=== PATIENT | female | born 1945 | race Caucasian/White ===

== ENCOUNTER 2018-06-05 06:58 | Day surgery (SDC) | payer OTHER ==
--- NOTE | 2018-05-26 11:48 | EKG ---
Test Date: 2018-05-26 Test Time: 11:25:04 Legal Adviser: OCTAVIO MEASUREMENT RESULTS: Intervals: Rate: 62 NJ: 142 QRSD: 72 QT: 398 QTc: 403 [place]: P: 62 NJ: 142 QRS: 46 T: 55 INTERPRETIVE STATEMENTS: Normal sinus rhythm Low voltage QRS Borderline ECG Compared to ECG 03/09/2017 09:48:38 Low QRS voltage now present Prolonged QT interval no longer present Electronically Signed On 05-26-18 11:47:50 CDT by Avtar Cantu
[2018-05-26 11:55] LABS: Absolute Lymphocytes (CBC) 1.8 K/uL (0.7-4.9); Absolute Monocytes 0.5 K/uL (0.1-1.3); Absolute Neutrophil 3.1 K/uL (1.8-8.0); Basophils % 0.7 % (0-1.3); Eosinophils % 1.4 % (0-4.4); Hematocrit 44.1 % (36.0-45.0); Lymphocytes % 32.9 % (15.3-44.8); MCH 30.3 pg (27.0-35.0); MCV 91.2 fL (80-100); MPV 7.6 fL (7.6-11.3); Monocytes % 9.2 % (3.3-12.3); RBC Red Blood Cell Count 4.83 M/uL (3.86-4.86)
[2018-05-26 12:11] LABS: Potassium 4.8 mmol/L (3.5-5.1)
--- OUTSIDE RECORDS SUMMARY | 2018-06-05 07:01 | XMS REPORT | Clinical Summary ---
:1945 Author Organization [facility] Address [address] [place] [address] Care Team Providers Name Role Phone Talon Au MD Primary Care Provider Allergies Not on File Current Medications Not on file Active Problems Not on file Social History Tobacco Use Types Packs/Day Years Used Date Never Assessed Sex Assigned at Date Recorded Not on file Last Filed Vital Signs Not on file Plan of Treatment Health Maintenance Due Date Last Done Comments BREAST CANCER SCREENING 1996 COLON CANCER SCREENING 1996 SHINGRIX VACCINE (#1) 1996 ZOSTER VACCINE 2006 PNEUMOCOCCAL POLYSACCHARIDE VACCINE AGE 65 AND OVER 12/26/2011 PNEUMOCOCCAL-13 12/26/2011 INFLUENZA VACCINE 04/19/2018 Results Not on fileafter 06/04/2017 Insurance Payer Benefit Plan / Group Subscriber ID Type Phone Address AARP AARP SUPPLEMENT xxxxxxxxxxx Commercial MEDICARE MEDICARE PART A AND B xxxxxxxxxx Medicare [place], [place]
[2018-06-05] MEDS ORDERED: PHENYLEPHRINE 10% OPTH 5ML ONE (07:11)
[2018-06-05] MEDS ORDERED: NA CHLORIDE 0.9% 500 ML ONE (07:11)
[2018-06-05] MEDS ORDERED: BUPIVACAINE 0.25% PF 10 ML VIAL ONE (07:12)
[2018-06-05] MEDS ORDERED: LIDOCAINE 2% MPF 5 ML VIAL ONE ×2 (07:12→08:25)
[2018-06-05] MEDS ORDERED: CYCLOPENTOLATE 1% OPTH 2 ML ONE (07:12)
[2018-06-05] MEDS ORDERED: TETRACAINE HCL 0.5% 2ML OPTH ONE (07:13)
[2018-06-05] MEDS ORDERED: CYCLOPENTOLATE 1% OPTH 2 ML OPTH ONE ×2 (07:42→07:47)
[2018-06-05] MEDS ORDERED: PHENYLEPHRINE 10% OPTH 5ML OPTH ONE ×2 (07:42→07:47)
[2018-06-05] MEDS ORDERED: NS 0.9% VIAL 10 ML ONE (08:10)
[2018-06-05] MEDS: BALANCED SALT IRRIG PLAIN 500 ML BTL IRR ONE ×2 (08:22→08:28)
[2018-06-05] MEDS: MOXIFLOXACIN HCL 10 DROPS/ML **OR USE OPTH ONE ×2 (08:23→08:28)
[2018-06-05] MEDS: DUOVISC 1 KIT OPTH ONE ×2 (08:23→08:28)
[2018-06-05] MEDS: EPINEPHRINE/PF 1 MG/ML AMP ONE ×2 (08:23→08:28)
[2018-06-05] MEDS ORDERED: PROPOFOL 200 MG/20 ML VIAL IV ONE (08:25)
--- NOTE | 2018-06-05 09:05 | P.BOP ---
Preoperative diagnosis: Nuclear sclerotic cataract OS Postoperative diagnosis: Same Primary procedure: Phacoemulsification with IOL OS Estimated blood loss: None Anesthesia: Local (Subtenon's infusion with anesthesia for cataract surgery) Complications: None Implants: SN60WF +18.5 Transferred to: Other (Day surgery) Condition: Good
--- NOTE | 2018-06-05 20:34 | OP ---
Date of Procedure: 06/05/2018 Surgeon: Suzan Palma MD Anesthesiologist: 1. Len Gage CRNA. 2. Len Boateng C.R.N.A. 3. Chace Mcdonald MD. Preoperative Diagnosis: Nuclear sclerotic cataract, OS (left eye). Operation Performed: Phacoemulsification with intraocular lens implant, left eye. Anesthesia: Per cataract surgery. Complications: None. Description Of The Procedure: In day surgery, the patient was prepped with Betadine and draped. A c onjunctival incision was made in the inferior nasal quadrant with Miguel scissors. A sub-Tenon blo ck consisting of a 1:1 mixture of 2% Xylocaine and 0.25% bupivacaine was placed through the conjuncti popeye incision with a blunt cannula. A Honan balloon was placed over the eye and the patient was trans ferred to the operating room. In the operating room the patient was prepped and draped in the usual sterile fashion for ophthalmic surgery. A lid speculum was placed in the left eye. Two paracentesis sites were made superiorly and inferiorly in the limbal cornea. Viscoat was placed in the anterior chamber and a crescent blade wa s used to make a corneal groove and tunnel, and a keratome was used to enter the anterior chamber. P rovisc was placed in the anterior chamber and a 360 degree capsulotomy was performed with a cystitome . The lens was hydrodissected with BSS and rotated freely. The lens was removed with a stop and cho p technique. 19.56 phaco CDE was used to remove the lens. Residual cortex was removed with the irri gation and aspiration. Provisc was placed in the capsular bag. A SN60WF +18.5 lens was placed in th e capsular bag without complications. Irrigation and aspiration was used to remove residual viscoela stic. The paracentesis sites were hydrated with BSS. The wound and paracentesis sites were inspecte d and found to be watertight. Vigamox 0.07 cc was placed intracamerally at the end of the procedure. The eye was irrigated with balanced salt solution. The eye was patched with a soft cotton patch an d Dunne metal shield. The patient was returned to day surgery in good condition. Discharge Instructions: Ms. Gutierrez is discharged to home in good condition. She is to follow up cheryl Palma at 3:30 today and then in the morning. ANAYELI/CIPRIANO Voice ID: [id number] Report ID: [id number]
== END 2018-06-05 09:42 | disposition home or self-care (01) ==
LOC: OR 06:58
PROVIDERS: ATTEND Ophthalmology Retina Specialist
PROC: 08RK3JZ Replacement of Left Lens with Synthetic Substitute, Percutaneous Approach (ICD-10-PCS; principal; 2018-06-05 08:30)
DX: H25.12 Age-related nuclear cataract, left eye (principal); I10 Essential (primary) hypertension; G30.9 Alzheimer's disease, unspecified; F02.80 Dementia in other diseases classified elsewhere, unspecified severity, without behavioral disturbance, psychotic disturbance, mood disturbance, and anxiety; Z88.2 Allergy status to sulfonamides; Z82.49 Family history of ischemic heart disease and other diseases of the circulatory system
CPT/HCPCS: 36415; 66984; 80048; 85025; 93005; J0171; V2630

== ENCOUNTER 2018-10-24 14:19 | Observation (INO) | payer OTHER ==
--- OUTSIDE RECORDS SUMMARY | 2018-10-24 14:21 | XMS REPORT | Clinical Summary ---
:1945 Author Organization [facility] Address [address] [place] [address] Care Team Providers Name Role Phone Talon Au MD Primary Care Provider Allergies Not on File Medications Not on file Active Problems Not on file Social History Tobacco Use Types Packs/Day Years Used Date Never Assessed Sex Assigned at Date Recorded Not on file Job Start Date Occupation Industry Not on file Not on file Not on file Travel History Travel Start Travel End No recent travel history available. Last Filed Vital Signs Not on file Plan of Treatment Health Maintenance Due Date Last Done Comments BREAST CANCER SCREENING 1996 COLON CANCER SCREENING 1996 SHINGLES VACCINES (1 of 2) 1996 PNEUMOCOCCAL POLYSACCHARIDE VACCINE AGE 65 AND OVER 12/26/2011 PNEUMOCOCCAL-13 12/26/2011 INFLUENZA VACCINE 04/19/2018 Results Not on fileafter 10/23/2017 Insurance Payer Benefit Plan / Group Subscriber ID Type Phone Address AARP AARP SUPPLEMENT xxxxxxxxxxx Commercial MEDICARE MEDICARE PART A AND B xxxxxxxxxx Medicare [place], [place]
--- NOTE | 2018-10-24 14:40 | RAD REPORT ---
EXAM DESCRIPTION: CT - Ct Stroke Brain Wo Cont - 10/24/2018 2:32 pm CLINICAL HISTORY: TIA COMPARISON: 2017 TECHNIQUE: Computed axial tomography of the head was obtained. IV contrast was not requested. All CT scans are performed using dose optimization technique as appropriate and may include automated exposure control or mA/KV adjustment according to patient size. FINDINGS: An intracranial bleed is not seen . The ventricles are normal in caliber. No extra-axial fluid collection is noted. Fluid within the sinuses/ mastoids is not seen. IMPRESSION: No acute intracranial abnormality is seen. If patient's symptoms persist MRI of the bra in would be recommended. Dr. Arteaga of the emergency room notified 2:25 p.m. October 24, 2018
[2018-10-24 14:48] LABS: Protime INR 1.09
[2018-10-24 14:51] LABS: Absolute Lymphocytes (CBC) 1.2 K/uL (0.7-4.9); Absolute Monocytes 0.4 K/uL (0.1-1.3); Absolute Neutrophil 3.5 K/uL (1.8-8.0); Basophils % 1.2 % (0-1.3); Eosinophils % 4.6 % (0-4.4); Hematocrit 35.1 % (36.0-45.0); Lymphocytes % 21.3 % (15.3-44.8); Monocytes % 7.7 % (3.3-12.3); RBC Red Blood Cell Count 4.03 M/uL (3.86-4.86)
[2018-10-24 14:57] LABS: Magnesium 1.9 mg/dL (1.8-2.4); Potassium 4.3 mmol/L (3.5-5.1)
--- NOTE | 2018-10-24 15:27 | RAD REPORT ---
EXAM DESCRIPTION: RAD - Chest Single View - 10/24/2018 2:47 pm CLINICAL HISTORY: stroke Chest pain. COMPARISON: Chest Single View dated 03/09/2017 FINDINGS: Portable technique limits examination quality. The lungs are grossly clear. The heart is normal in size. No displaced fractures. IMPRESSION: No acute intrathoracic process suspected.
--- NOTE | 2018-10-24 16:00 | EDPHYS ---
Physician Documentation [facility] Name: Gavi Gutierrez Age: 72 yrs Sex: Female : 1945 Arrival Date: 10/24/2018 Time: 14:22 Bed 8 Private MD: ED Physician Patrick Child HPI: 10/24 15:44 This 72 yrs old Female presents to ER via EMS with complaints of S/S of ps1 Possible Stroke. 15:44 The patient's problem is reported as dysphasia, incoherent speech. Onset: The ps1 symptoms/episode began/occurred at 11:30. Duration: The episode is continuous. Context: the episode(s) was witnessed, by the [place] staff. Patient's baseline: Neuro: alert and fully oriented, she does have history of dementia. The patient has experienced similar episodes in the past. Sister states that she recently had an episode that was described as an overall feeling of impending doom but could not really explain it. It lasted for a couple of minutes and then spontaneously remitted. She presented today and had difficulty answering questions and responding in jibberish. She was stroke activated and upon returning from the CT scan was completely returned to baseline. Patient could not answer who the president was but this was an expectation per sister as she has dementia. . Historical: - Allergies: 14:44 Sulfa (Sulfonamide Antibiotics); hb - Home Meds: 14:44 acetaminophen 325 mg Oral tab 2 tabs every 4-6 hours [Active]; aspirin 81 mg Oral chew hb 1 tab once daily [Active]; calcium carbonate 600 mg (1,500 mg) Oral tab 600 mg daily [Active]; diazepam 5 mg Oral tab 1 tab 2 times per day [Active]; donepezil 10 mg Oral tab 1 tab once daily [Active]; escitalopram oxalate 5 mg Oral tab 1 tab once daily [Active]; estradiol 2 mg Oral tab 1 tab once daily [Active]; lisinopril 20 mg Oral tab 1 tab once daily [Active]; memantine 10 mg Oral tab 1 tab 2 times per day [Active]; melatonin 3 mg Oral tab 3 mg daily [Active]; triamterene-hydrochlorothiazid 37.5-25 mg Oral tab 0.5 tab once daily [Active]; Vitamin C 1,000 mg Oral tab 1000 mg daily [Active]; Vitamin D Oral 2000 unit daily [Active]; vitamin E 400 unit Oral cap 400 unit daily [Active]; - PMHx: 14:44 CAD; bladder dysfunction; Hypertension; Dementia; progressive alzheimers; hb - Immunization history:: Adult Immunizations unknown. - Social history:: Smoking status: Patient/guardian denies using tobacco. - Ebola Screening: : No symptoms or risks identified at this time. ROS: 15:44 Constitutional: Negative for fever, chills, and weight loss, Eyes: Negative for injury, ps1 pain, redness, and discharge, Cardiovascular: Negative for chest pain, palpitations, and edema, Respiratory: Negative for shortness of breath, cough, wheezing, and pleuritic chest pain, Abdomen/GI: Negative for abdominal pain, nausea, vomiting, diarrhea, and constipation, MS/Extremity: Negative for injury and deformity, Skin: Negative for injury, rash, and discoloration. 15:44 Neuro: Positive for altered mental status, speech changes. Exam: 15:44 Radiologist reports: negative for hemorrhagic stroke. ps1 15:44 Constitutional: This is a well developed, well nourished patient who is awake, alert, and in no acute distress. Head/Face: Normocephalic, atraumatic. Eyes: Pupils equal round and reactive to light, extra-ocular motions intact. Lids and lashes normal. Conjunctiva and sclera are non-icteric and not injected. Chest/axilla: Normal chest wall appearance and motion. Nontender with no deformity. No lesions are appreciated. Cardiovascular: Regular rate and rhythm. No gallops, murmurs, or rubs. Normal PMI, no JVD. No pulse deficits. Respiratory: Lungs have equal breath sounds bilaterally, clear to auscultation and percussion. No rales, rhonchi or wheezes noted. No increased work of breathing, no retractions or nasal flaring. Abdomen/GI: Soft, non-tender, with normal bowel sounds. No distension or tympany. No guarding or rebound. No evidence of tenderness throughout. Skin: Warm, dry with normal turgor. Normal color with no rashes, no lesions, and no evidence of cellulitis. MS/ Extremity: Pulses equal, no cyanosis. Neurovascular intact. Full, normal range of motion. Neuro: Awake and alert, GCS 15, oriented to person, place, time, and situation. Cranial nerves II-XII grossly intact. Sensory grossly intact. Vital Signs: 14:30 BP 147 / 68; Pulse 75; Resp 16; Temp 98.1; Pulse Ox 100% on R/A; Pain 0/10; hb 14:36 BP 147 / 68; Pulse 74; Resp 18; Temp 98.2; Pulse Ox 98% on R/A; Weight 63.5 kg; ph 15:30 BP 148 / 78; Pulse 77; Resp 16; Pulse Ox 99% on R/A; hb NIH Stroke Scale Scores: 14:19 NIHSS Score: 3 hb 14:37 NIHSS Score: 0 hb MDM: 14:39 Patient medically screened. ps1 15:44 Data reviewed: vital signs, nurses notes. ps1 10/24 14:27 Order name: Magnesium; Complete Time: 15:17 ps1 10/24 14:27 Order name: Basic Metabolic Panel; Complete Time: 15:17 ps1 10/24 14:26 Order name: CT Stroke Brain w/o Contrast; Complete Time: 15:17 bd 10/24 14:27 Order name: CBC with Diff; Complete Time: 15:17 ps1 10/24 14:27 Order name: Protime (+inr); Complete Time: 15:17 ps1 10/24 14:27 Order name: Stroke CXR 1 View; Complete Time: 15:32 ps1 10/24 14:27 Order name: EKG; Complete Time: 14:28 ps1 10/24 14:27 Order name: Accucheck; Complete Time: 14:49 ps1 10/24 14:27 Order name: Cardiac monitoring; Complete Time: 14:49 ps1 10/24 14:27 Order name: EKG - Nurse/Tech; Complete Time: 14:49 ps1 10/24 14:27 Order name: IV Saline Lock; Complete Time: 14:49 ps1 10/24 14:27 Order name: Labs collected and sent; Complete Time: 14:48 ps1 10/24 14:27 Order name: NPO; Complete Time: 14:48 ps1 10/24 14:27 Order name: O2 Per Protocol; Complete Time: 14:48 ps1 10/24 14:27 Order name: O2 Sat Monitoring; Complete Time: 14:48 ps1 10/24 14:27 Order name: Stroke Swallow Screen; Complete Time: 16:03 ps1 10/24 14:27 Order name: Urine Dipstick-Ancillary (obtain specimen); Complete Time: 14:48 ps1 Administered Medications: No medications were administered Point of Care Testing: Blood Glucose: 14:30 Blood Glucose: 170 mg/dL; ph Ranges: Critical Glucose Levels:Adult <50 mg/dl or >400 mg/dl <40 mg/dl or >180 mg/dl Disposition: 10/24/18 15:59 Hospitalization ordered by Dana Morrissey for Inpatient Admission. Preliminary diagnosis is Transient cerebral ischemic attack, unspecified. - Bed requested for Telemetry/MedSurg (Inpatient). - Status is Inpatient Admission. ph - Condition is Stable. - Problem is new. - Symptoms are resolved. UTI on Admission? No NIH Stroke Scale - NIH Stroke Score Date: 10/24/2018 Time: 14:19 Total Score = 3 1a. Level of Consciousness (LOC) - 0(Alert) 1b. Level of Consciousness (LOC) (Year \T\ Age) - 2(Neither) 1c. LOC Commands (Open \T\ Closes Eyes/Clinical Exercise Specialist) - 0(Both) 2. Best Gaze (Lateral Gaze Paresis) - 0(Normal) 3. Visual Field Loss - 0(No visual loss) 4. Facial Palsy - 0(Normal) 5a. Left Arm: Motor (10-second hold) - 0(No drift) 5b. Right Arm: Motor (10-second hold) - 0(No drift) 6a. Left Leg: Motor (5-second hold - always test supine) - 0(No drift) 6b. Right Leg: Motor (5-second hold - always test supine) - 0(No drift) 7. Limb Ataxia (finger/nose \T\ heel/coffey - test with eyes open) - 0(Absent) 8. Sensory Loss (pinprick arms/legs/face) - 0(Normal) 9. Best Language: Aphasia (description/naming/reading) - 1(Mild to moderate aphasia) 10. Dysarthria (speech clarity - read or repeat words) - 0(Normal) 11. Extinction and Inattention (visual/tactile/auditory/spatial/personal) - 0(No abnormality) Initials: hb NIH Stroke Scale - NIH Stroke Score Date: 10/24/2018 Time: 14:37 Total Score = 0 1a. Level of Consciousness (LOC) - 0(Alert) 1b. Level of Consciousness (LOC) (Year \T\ Age) - 0(Both) 1c. LOC Commands (Open \T\ Closes Eyes/Clinical Exercise Specialist) - 0(Both) 2. Best Gaze (Lateral Gaze Paresis) - 0(Normal) 3. Visual Field Loss - 0(No visual loss) 4. Facial Palsy - 0(Normal) 5a. Left Arm: Motor (10-second hold) - 0(No drift) 5b. Right Arm: Motor (10-second hold) - 0(No drift) 6a. Left Leg: Motor (5-second hold - always test supine) - 0(No drift) 6b. Right Leg: Motor (5-second hold - always test supine) - 0(No drift) 7. Limb Ataxia (finger/nose \T\ heel/coffey - test with eyes open) - 0(Absent) 8. Sensory Loss (pinprick arms/legs/face) - 0(Normal) 9. Best Language: Aphasia (description/naming/reading) - 0(No aphasia) 10. Dysarthria (speech clarity - read or repeat words) - 0(Normal) 11. Extinction and Inattention (visual/tactile/auditory/spatial/personal) - 0(No abnormality) Initials: Signatures: Dispatcher [employer] [facility] Rosy Ruiz RN RN Kristin Danielle RN RN Araceli Jaquez RN RN Patrick Child MD MD ps1 Corrections: (The following items were deleted from the chart) 14:32 14:28 CT-STROKE BRAIN W/O CONTRAST+CT.RAD.BRZ ordered. [facility] 16:37 15:59 Hospitalization Ordered by Dana Morrissey MD for Inpatient Admission. dw Preliminary diagnosis is Transient cerebral ischemic attack, unspecified. Bed requested for Telemetry/MedSurg (Inpatient). Status is Inpatient Admission. Condition is Stable. Problem is new. Symptoms are resolved. UTI on Admission? No. ps1 17:10 16:37 10/24/2018 15:59 Hospitalization Ordered by Dana Morrissey MD for Inpatient ph Admission. Preliminary diagnosis is Transient cerebral ischemic attack, unspecified. Bed requested for Telemetry/MedSurg (Inpatient). Status is Inpatient Admission. Condition is Stable. Problem is new. Symptoms are resolved. UTI on Admission? No. dw
--- NOTE | 2018-10-24 16:00 | ER ---
Nurse's Notes [facility] Name: Gavi Gutierrez Age: 72 yrs Sex: Female : 1945 Arrival Date: 10/24/2018 Time: 14:22 Bed 8 Private MD: Diagnosis: Transient cerebral ischemic attack, unspecified Presentation: 10/24 14:20 Presenting complaint: EMS states: Initially called out for chest pain and SOB, on scene hb pt was confused, unable to to answer questions appropriately. Vitals WNL. 14:20 Transition of care: patient was received from another setting of care (long-term care facility), [facility]. Onset of symptoms was October 24, 2018. Risk Assessment: Do you want to hurt yourself or someone else? Patient reports no desire to harm self or others. Care prior to arrival: None. 14:20 Method Of Arrival: EMS: [facility] 14:20 Acuity: BROWN 2 hb 14:36 Initial Sepsis Screen: Does the patient meet any 2 criteria? No. Patient's initial ph sepsis screen is negative. Does the patient have a suspected source of infection? No. Patient's initial sepsis screen is negative. Historical: - Allergies: 14:44 Sulfa (Sulfonamide Antibiotics); hb - Home Meds: 14:44 acetaminophen 325 mg Oral tab 2 tabs every 4-6 hours [Active]; aspirin 81 mg Oral chew hb 1 tab once daily [Active]; calcium carbonate 600 mg (1,500 mg) Oral tab 600 mg daily [Active]; diazepam 5 mg Oral tab 1 tab 2 times per day [Active]; donepezil 10 mg Oral tab 1 tab once daily [Active]; escitalopram oxalate 5 mg Oral tab 1 tab once daily [Active]; estradiol 2 mg Oral tab 1 tab once daily [Active]; lisinopril 20 mg Oral tab 1 tab once daily [Active]; memantine 10 mg Oral tab 1 tab 2 times per day [Active]; melatonin 3 mg Oral tab 3 mg daily [Active]; triamterene-hydrochlorothiazid 37.5-25 mg Oral tab 0.5 tab once daily [Active]; Vitamin C 1,000 mg Oral tab 1000 mg daily [Active]; Vitamin D Oral 2000 unit daily [Active]; vitamin E 400 unit Oral cap 400 unit daily [Active]; - PMHx: 14:44 CAD; bladder dysfunction; Hypertension; Dementia; progressive alzheimers; hb - Immunization history:: Adult Immunizations unknown. - Social history:: Smoking status: Patient/guardian denies using tobacco. - Ebola Screening: : No symptoms or risks identified at this time. Screenin:35 Abuse screen: Denies threats or abuse. Denies injuries from another. Nutritional hb screening: No deficits noted. Tuberculosis screening: No symptoms or risk factors identified. Fall Risk Total Rao Fall Scale indicates Low Risk Score (25-44 pts). Fall prevention measures have been instituted. Side Rails Up X 2 Frequent Obs/Assesments occuring Family Present and informed to notify staff if they need to leave bedside As available Patient and Family Educated on Fall Prevention Program and strategies. 15:00 Patient has been NPO before screening. The patient is alert, able to follow commands. hb The patient does not exhibit slurred or garbled speech The patient is not exhibiting difficulty speaking. The patient does not exhibit difficulty understanding words. The patient is able to swallow own secretions with no drooling or need for suction. Patient tolerated one teaspoon of water. No drooling, immediate coughing, gurgling, or clearing of the throat was noted. The patient tolerated 90mL of water. No drooling, immediate coughing, gurgling, or clearing of the throat was noted. The patient passed the bedside swallow screening. Oral medications may be given as ordered. Contact Physician for further diet orders. Assessment: 14:19 Reassessment: Pt to CT from ambulance bay. hb 14:19 General: Appears in no apparent distress. Behavior is cooperative, quiet. Neuro: Level ph of Consciousness is awake, alert, obeys commands, Oriented to person, Advertising Analyst are equal bilaterally Moves all extremities. Speech with expressive aphasia noted, Facial symmetry appears normal, Pupils are PERRLA. 14:25 Reassessment: Pt returned from CT, lab at bedside for blood draw. hb 14:28 Reassessment: BGL 148. Dr. Child at bedside. hb 14:38 General: Appears in no apparent distress. comfortable, well groomed, Behavior is calm, ph cooperative, appropriate for age, Denies fever, feeling ill. Pain: Denies pain. Neuro: Level of Consciousness is awake, alert, obeys commands, Oriented to person, place, Advertising Analyst are equal bilaterally Moves all extremities. Full function Gait is steady, Speech is normal, Facial symmetry appears normal, Facial symmetry: tongue is midline, Pupils are PERRLA, Intact Denies weakness blurred vision headache. Cardiovascular: Capillary refill < 3 seconds in bilateral fingers Patient's skin is warm and dry. Respiratory: Airway is patent Respiratory effort is even, unlabored, Respiratory pattern is regular, symmetrical. GI: No signs and/or symptoms were reported involving the gastrointestinal system. Patient currently denies abdominal pain, nausea. Derm: Skin is intact, is healthy with good turgor, Skin is pink, warm \T\ dry. Musculoskeletal: Circulation, motion, and sensation intact. Range of motion: intact in all extremities. 15:30 Reassessment: Patient appears in no apparent distress at this time. No changes from hb previously documented assessment. Patient and/or family updated on plan of care and expected duration. Pain level reassessed. Patient is alert, oriented x 3, equal unlabored respirations, skin warm/dry/pink. 16:30 Reassessment: Patient appears in no apparent distress at this time. Patient and/or ph family updated on plan of care and expected duration. Pain level reassessed. Patient is alert, oriented x 3, equal unlabored respirations, skin warm/dry/pink. Pt denies pain at this time, family at bedside, VSS, awaiting room assignment Patient denies pain at this time. 17:08 Reassessment: Patient appears in no apparent distress at this time. Patient and/or ph family updated on plan of care and expected duration. Pain level reassessed. Patient is alert, oriented x 3, equal unlabored respirations, skin warm/dry/pink. Report called to 4th floor, pt taken to inpatient room via wheelchair. Vital Signs: 14:30 BP 147 / 68; Pulse 75; Resp 16; Temp 98.1; Pulse Ox 100% on R/A; Pain 0/10; hb 14:36 BP 147 / 68; Pulse 74; Resp 18; Temp 98.2; Pulse Ox 98% on R/A; Weight 63.5 kg; ph 15:30 BP 148 / 78; Pulse 77; Resp 16; Pulse Ox 99% on R/A; hb NIH Stroke Scale Scores: 14:19 NIHSS Score: 3 hb 14:37 NIHSS Score: 0 hb ED Course: 14:22 Patient arrived in ED. ph 14:26 Patrick Child MD is Attending Physician. ps1 14:32 CT Stroke Brain w/o Contrast In Process Unspecified. EDMS 14:34 Kristin Danielle, VINNIE is Primary Nurse. ph 14:35 Triage completed. hb 14:45 Stroke CXR 1 View In Process Unspecified. EDMS 14:45 X-ray completed. Portable x-ray completed in exam room. Patient tolerated procedure ag1 well. 14:47 Arm band placed on. ph 14:47 Patient has correct armband on for positive identification. Placed in gown. Bed in low ph position. Call light in reach. Side rails up X2. court recording monitor on. Pulse ox on. NIBP on. Warm blanket given. 15:00 Maintain EMS IV. Dressing intact. Good blood return noted. Site clean \T\ dry. Gauge \T\ ph site: 20 RAC. 15:03 EKG done, by photonics engineering technologist. reviewed by Patrick Child MD. at1 15:59 Dana Morrissey MD is Hospitalizing Provider. ps1 16:46 No provider procedures requiring assistance completed. ph 17:10 Patient admitted, IV remains in place. ph Administered Medications: No medications were administered Point of Care Testing: Blood Glucose: 14:30 Blood Glucose: 170 mg/dL; ph Ranges: Outcome: 15:59 Decision to Hospitalize by Provider. ps1 17:09 Admitted to Tele accompanied by tech, family with patient, via wheelchair, room 412, ph with chart. 17:09 Condition: stable 17:09 Instructed on the need for admit. 17:10 Patient left the ED. NIH Stroke Scale - NIH Stroke Score Date: 10/24/2018 Time: 14:19 Total Score = 3 1a. Level of Consciousness (LOC) - 0(Alert) 1b. Level of Consciousness (LOC) (Year \T\ Age) - 2(Neither) 1c. LOC Commands (Open \T\ Closes Eyes/Tank Operator) - 0(Both) 2. Best Gaze (Lateral Gaze Paresis) - 0(Normal) 3. Visual Field Loss - 0(No visual loss) 4. Facial Palsy - 0(Normal) 5a. Left Arm: Motor (10-second hold) - 0(No drift) 5b. Right Arm: Motor (10-second hold) - 0(No drift) 6a. Left Leg: Motor (5-second hold - always test supine) - 0(No drift) 6b. Right Leg: Motor (5-second hold - always test supine) - 0(No drift) 7. Limb Ataxia (finger/nose \T\ heel/coffey - test with eyes open) - 0(Absent) 8. Sensory Loss (pinprick arms/legs/face) - 0(Normal) 9. Best Language: Aphasia (description/naming/reading) - 1(Mild to moderate aphasia) 10. Dysarthria (speech clarity - read or repeat words) - 0(Normal) 11. Extinction and Inattention (visual/tactile/auditory/spatial/personal) - 0(No abnormality) Initials: NIH Stroke Scale - NIH Stroke Score Date: 10/24/2018 Time: 14:37 Total Score = 0 1a. Level of Consciousness (LOC) - 0(Alert) 1b. Level of Consciousness (LOC) (Year \T\ Age) - 0(Both) 1c. LOC Commands (Open \T\ Closes Eyes/Tank Operator) - 0(Both) 2. Best Gaze (Lateral Gaze Paresis) - 0(Normal) 3. Visual Field Loss - 0(No visual loss) 4. Facial Palsy - 0(Normal) 5a. Left Arm: Motor (10-second hold) - 0(No drift) 5b. Right Arm: Motor (10-second hold) - 0(No drift) 6a. Left Leg: Motor (5-second hold - always test supine) - 0(No drift) 6b. Right Leg: Motor (5-second hold - always test supine) - 0(No drift) 7. Limb Ataxia (finger/nose \T\ heel/coffey - test with eyes open) - 0(Absent) 8. Sensory Loss (pinprick arms/legs/face) - 0(Normal) 9. Best Language: Aphasia (description/naming/reading) - 0(No aphasia) 10. Dysarthria (speech clarity - read or repeat words) - 0(Normal) 11. Extinction and Inattention (visual/tactile/auditory/spatial/personal) - 0(No abnormality) Initials: Signatures: Dispatcher [employer] EDMS Valeria Cristina, cork insulation installer EKG Tat1 Kristin Danielle RN RN Denia Thomas ag1 Jaquez, Araceli, RN Patrick Hickman MD MD ps1 Corrections: (The following items were deleted from the chart) 14:31 14:26 Reassessment: Pt returned from CT, lab at bedside for blood draw hb hb
[2018-10-24] MEDS ORDERED: ONDANSETRON 4 MG/2 ML VIAL IV PRN (17:19)
[2018-10-24] MEDS ORDERED: ACETAMINOPHEN 500 MG TAB PO PRN (17:19)
[2018-10-24] MEDS: ENOXAPARIN 40 MG/0.4 ML SQ SCH (17:38)
[2018-10-24] MEDS: NA CHLORIDE 0.9% 1,000 ML IV SCH (17:38)
--- NOTE | 2018-10-24 18:14 | P.PN ---
Date of Service: 10/24/18 I was called by ER Dr. Child to admit patient from assisted living facility. After evaluating patient, family informed me that she recently established care with Dr. Biggs. Spoke with Dr. Biggs and he will be taking over service of patient. Orders for admission placed prior to knowledge of PCP.
--- NOTE | 2018-10-24 19:45 | RAD REPORT ---
EXAM DESCRIPTION: US - CP - 10/24/2018 7:21 pm CLINICAL HISTORY: TIA COMPARISON: No comparisons TECHNIQUE: Real-time sonographic evaluation of both carotid systems was performed. Doppler interroga tion was performed with waveform tracing bilaterally. FINDINGS: Normal high resistance waveforms are noted in both external carotid arteries. The common c arotid arteries and internal carotid arteries show normal low resistance waveforms. Mild hard plaquing is seen in both carotid bulbs and proximal internal carotid arteries. Peak systoli c and end diastolic velocity values and the ICA/CCA ratios are in the non-hemodynamically significant range. Antegrade flow seen in both vertebral arteries. IMPRESSION: Mild hard plaquing is seen in both carotid bulbs proximal internal carotid arteries. No evidence of a hemodynamically significant stenosis.
[2018-10-24] MEDS ORDERED: ATORVASTATIN 40 MG TAB PO SCH (21:00)
[2018-10-24] MEDS ORDERED: levETIRAcetam 500 MG in NA CHLORIDE 0.9% 100 ML IV SCH (21:00)
[2018-10-24 21:21] LABS: Urine Appearance CLEAR; Urine Bilirubin NEGATIVE (NEG); Urine Blood NEGATIVE (NEG); Urine Color YELLOW; Urine Glucose NEGATIVE (NEG); Urine Protein NEGATIVE (NEG); Urine Specific Gravity <=1.005 (1.005-1.030); Urine Urobilinogen 0.2 mg/dL (0.2-1.0); Urine pH 7.5 (5.0-7.0)
--- NOTE | 2018-10-24 21:23 | P.HP ---
Certification for Inpatient Patient admitted to: Observation With expected LOS: <2 Midnights Practitioner: I am a practitioner with admitting privileges, knowledge of patient current condition, hospital course, and medical plan of care. Services: Services provided to patient in accordance with Admission requirements found in Title 42 Section 412.3 of the Code of Federal Regulations Patient History Date of Service: 10/24/18 Reason for admission: ALTERED SPEECH AND IMBALANCE History of Present Illness: MS. BOWIE IS A PATIENT WITH SIGNIFICANT ALZHEIMER'S DISEASE WHO AT [facility] HAD AN EPISODE OF WEAKNESS AND JIBBERISH SPEECH FOR ABOUT TWO HOURS. SHE IS BACK TO HER BASELINE NOW. SISTER GAVE THE HISTORY. Allergies Sulfa (Sulfonamide Antibiotics) Allergy (Unknown, Verified 05/26/18 11:14) Hives Home Medications: Ascorbic Acid [Vitamin C] 1 tab PO DAILY 10/24/18 Aspirin [Aspirin EC 81 MG] 81 mg PO DAILY 10/24/18 Bupropion HCl [Zyban] 150 mg PO BID 10/24/18 Calcium Carb & Citrate/Vit D3 [Citracal + D ER Tablet] 2 each PO BID 10/24/18 Carvedilol 6.25 mg PO BID 10/24/18 D-Methorphan Hb/Prometh HCl [Promethazine-Dm Syrup] 5 ml PO QID PRN 10/24/18 Diazepam [Valium] 1 tab PO BID PRN 10/24/18 Donepezil HCl 1 tab PO DAILY 10/24/18 Latanoprost/Pf [Latanoprost 0.005% Eye Drop] 1 drop LEFT EYE BEDTIME 10/24/18 Lisinopril [Prinivil*] 1 tab PO DAILY 10/24/18 Melatonin [Melatonin*] 3 mg PO BEDTIME 10/24/18 Phenylephrine HCl/Acetaminophn [Mapap Sinus Caplet] 2 tab PO Q4H PRN 10/24/18 Ubidecarenone [Coenzyme Q-10] 100 mg PO DAILY 10/24/18 Vit C/E/Zn/Coppr/Lutein/Zeaxan [Preservision Areds 2 Softgel] 1 cap PO BID 10/24 Vitamin E 1 cap PO DAILY 10/24/18 - Past Medical/Surgical History Has patient received pneumonia vaccine in the past: No Diabetic: No -: dementia -: CAD -: HTN -: Bladder dyfunction -: hysterectomy -: cholecystectomy - Social History Smoking Status: Never smoker Alcohol use: No CD- Drugs: No Caffeine use: Yes Place of Residence: [facility] Review of Systems 10-point ROS is otherwise unremarkable Neurological: Confusion, As per HPI Physical Examination - Vital Signs Temperature: 98.6 F Blood Pressure: 151/76 Pulse: 70 Respirations: 20 Pulse Ox (%): 97 - Physical Exam General: In no apparent distress, Demented, Confused HEENT: Atraumatic, PERRLA, Mucous membr. moist/pink, EOMI, Sclerae nonicteric Neck: Supple, 2+ carotid pulse no bruit, No LAD, Without JVD or thyroid abnormality Respiratory: Clear to auscultation bilaterally, Normal air movement Cardiovascular: Regular rate/rhythm, Normal S1 S2 Gastrointestinal: Normal bowel sounds, No tenderness Musculoskeletal: No tenderness Integumentary: No rashes Neurological: Normal gait, Normal speech, Normal strength at 5/5 x4 extr, Normal tone, Normal affect Lymphatics: No axilla or inguinal lymphadenopathy - Studies Laboratory Data (last 24 hrs) 10/24/18 14:25: PT 12.9 H, INR 1.09 10/24/18 14:25: WBC 5.4, Hgb 11.5 L, Hct 35.1 L, Plt Count 349 10/24/18 14:25: Sodium 140, Potassium 4.3, BUN 9, Creatinine 1.25, Glucose 139 H , Magnesium 1.9 Assessment and Plan - Problems (Diagnosis) (1) Aphasia Current Visit: Yes Status: Acute Plan: THIS WAS FOR TWO HOURS AND RESOLVED. TIA OR ATYPICAL SEIZURE CAN DO THIS. I SUSPECT NO INFECTION. MRI AND EEG IN AM. START KEPPRA THAT WORKS WELL IN THIS SITUATION. (2) Alzheimer disease Current Visit: Yes Status: Chronic Plan: ON MEDS ALREADY. GRADUAL WORSENING. SHE SEES A PA IN [place] FOR IT. Qualifiers: Alzheimer's disease onset: late-onset - Advance Directives Does patient have a Living Will: No Does patient have a Durable POA for Healthcare: Yes
[2018-10-24 21:29] LABS: Urine Bacteria NONE SEEN /HPF (<20); Urine Culture Reflex Order NOT NEEDED; Urine RBC <5 /HPF (NONE SEEN)
[2018-10-25 04:16] LABS: Absolute Lymphocytes (CBC) 2.2 K/uL (0.7-4.9); Absolute Monocytes 0.6 K/uL (0.1-1.3); Absolute Neutrophil 2.9 K/uL (1.8-8.0); Basophils % 1.2 % (0-1.3); Eosinophils % 4.3 % (0-4.4); Hematocrit 32.7 % (36.0-45.0); Lymphocytes % 36.9 % (15.3-44.8); RBC Red Blood Cell Count 3.76 M/uL (3.86-4.86)
[2018-10-25 04:40] LABS: Albumin 3.1 g/dL (3.4-5.0); Bilirubin Total 0.2 mg/dL (0.2-1.0); Potassium 3.6 mmol/L (3.5-5.1); Protein, Total 5.8 g/dL (6.4-8.2); Thyroid Stimulating Hormone 0.719 uIU/mL (0.360-3.740)
[2018-10-25] MEDS: NA CHLORIDE 0.9% 1,000 ML IV SCH ×2 (06:39→14:32)
--- NOTE | 2018-10-25 07:00 | EKG ---
Test Date: 2018-09-23 Test Time: 14:35:22 Sharepoint Web Developer: ADRIAN MEASUREMENT RESULTS: Intervals: Rate: 76 MD: 126 QRSD: 66 QT: 378 QTc: 425 [place]: P: 27 MD: 126 QRS: 35 T: 43 INTERPRETIVE STATEMENTS: Normal sinus rhythm Normal ECG Compared to ECG 05/26/2018 11:25:04 No significant changes Electronically Signed On 10-25-18 06:53:42 CUSTOMER CARE VOICE CONSULTANT by Claudio Patrick
[2018-10-25] MEDS: ENOXAPARIN 40 MG/0.4 ML SQ SCH (09:00)
[2018-10-25] MEDS ORDERED: ASPIRIN EC 81 MG TAB PO SCH (09:00)
[2018-10-25] MEDS ORDERED: levETIRAcetam 500 MG TAB PO SCH (09:00)
[2018-10-25] MEDS ORDERED: CLOPIDOGREL 75 MG TABLET PO SCH (09:00)
[2018-10-25] MEDS ORDERED: LORazepam 2 MG/ML VIAL IV ONE (09:11)
--- NOTE | 2018-10-25 15:06 | RAD REPORT ---
EXAM DESCRIPTION: MRI - Brain Wo Cont - 10/25/2018 2:49 pm CLINICAL HISTORY: altered ms Headache, drowsiness COMPARISON: Ct Stroke Brain Wo Cont dated 10/24/2018 TECHNIQUE: Multi-sequence, multiplanar MR imaging of the brain was performed without contrast. FINDINGS: No intracranial hemorrhage, hydrocephalus or extra-axial fluid collections. No edema or sh ift of midline structures. No findings to suspect brain mass. DWI is negative for acute CVA. Midline structures are normally formed. Trace mucosal thickening is seen in both maxillary antra. A small amount fluid is seen in the inferio r left mastoid air cells. IMPRESSION: Negative for acute CVA or other acute intracranial abnormality.
--- NOTE | 2018-10-25 17:41 | P.DS ---
Admission Date: 10/24/18 Discharge Date: 10/25/18 Disposition: ROUTINE DISCHARGE Discharge Condition: FAIR Reason for Admission: ALTERED SPEECH AND IMBALANCE - Problems (1) Aphasia Onset Date: 10/25/18 Status: Acute (2) Alzheimer disease Onset Date: 10/25/18 Status: Chronic Qualifiers: Alzheimer's disease onset: late-onset Brief History of Present Illness: MS. BOWIE IS A PATIENT WITH SIGNIFICANT ALZHEIMER'S DISEASE WHO AT [facility] HAD AN EPISODE OF WEAKNESS AND JIBBERISH SPEECH FOR ABOUT TWO HOURS. SHE IS BACK TO HER BASELINE NOW. SISTER GAVE THE HISTORY. MRI IS NEGATIVE SHE IS STABLE TO GO HOME ON KEPPRA BID. I SENT RX TO [facility]. Vital Signs/Physical Exam: Temp Pulse Resp BP Pulse Ox 98.0 F 60 18 120/60 98 10/25/18 12:00 10/25/18 12:00 10/25/18 12:00 10/25/18 12:00 10/25/18 12:00 Laboratory Data at Discharge: WBC 6.0 K/uL (4.3-10.9) 10/25/18 03:44 Hgb 10.6 g/dL (12.0-15.0) L 10/25/18 03:44 Hct 32.7 % (36.0-45.0) L 10/25/18 03:44 Plt Count 269 K/uL (152-406) D 10/25/18 03:44 PT 12.9 SECONDS (9.5-12.5) H 10/24/18 14:25 INR 1.09 10/24/18 14:25 Sodium 145 mmol/L (136-145) 10/25/18 03:49 Potassium 3.6 mmol/L (3.5-5.1) 10/25/18 03:49 BUN 9 mg/dL (7-18) 10/25/18 03:49 Creatinine 0.98 mg/dL (0.55-1.3) 10/25/18 03:49 Glucose 84 mg/dL (74-106) 10/25/18 03:49 Magnesium 1.9 mg/dL (1.8-2.4) 10/24/18 14:25 Total Bilirubin 0.2 mg/dL (0.2-1.0) 10/25/18 03:49 AST 10 U/L (15-37) L 10/25/18 03:49 ALT 17 U/L (12-78) 10/25/18 03:49 Alkaline Phosphatase 92 U/L (45-117) 10/25/18 03:49 Triglycerides 170 mg/dL (<150) H 10/25/18 03:49 Cholesterol 163 mg/dL (<200) 10/25/18 03:49 HDL Cholesterol 38 mg/dL (40-60) L 10/25/18 03:49 Cholesterol/HDL Ratio 4.29 10/25/18 03:49 Home Medications: Ascorbic Acid [Vitamin C] 1 tab PO DAILY 10/24/18 Aspirin [Aspirin EC 81 MG] 81 mg PO DAILY 10/24/18 Bupropion HCl [Zyban] 150 mg PO BID 10/24/18 Calcium Carb & Citrate/Vit D3 [Citracal + D ER Tablet] 2 each PO BID 10/24/18 Carvedilol 6.25 mg PO BID 10/24/18 D-Methorphan Hb/Prometh HCl [Promethazine-Dm Syrup] 5 ml PO QID PRN 10/24/18 Diazepam [Valium] 1 tab PO BID PRN 10/24/18 Donepezil HCl 1 tab PO DAILY 10/24/18 Latanoprost/Pf [Latanoprost 0.005% Eye Drop] 1 drop LEFT EYE BEDTIME 10/24/18 Lisinopril [Prinivil*] 1 tab PO DAILY 10/24/18 Melatonin [Melatonin*] 3 mg PO BEDTIME 10/24/18 Phenylephrine HCl/Acetaminophn [Mapap Sinus Caplet] 2 tab PO Q4H PRN 10/24/18 Ubidecarenone [Coenzyme Q-10] 100 mg PO DAILY 10/24/18 Vit C/E/Zn/Coppr/Lutein/Zeaxan [Preservision Areds 2 Softgel] 1 cap PO BID 10/24 Vitamin E 1 cap PO DAILY 10/24/18 levETIRAcetam [Keppra*] 250 mg PO BID #60 tab 10/25/18 New Medications: levETIRAcetam [Keppra*] 250 mg PO BID #60 tab Diet: Regular Followup: Jonathan Iqbal MD [ASSOCIATE-ACTIVE - CAN ADMIT] - Freddie Biggs MD [ACTIVE - CAN ADMIT] -
--- NOTE | 2018-10-25 20:38 | CON ---
Reason For Consultation: Possible seizure or stroke. History Of Present Illness: Ms. Gutierrez is a 72-year-old patient who reportedly while in the care [facility] suddenly became disoriented, had incoherent speech and from her perspective, reportedly she was con fused and had a sense of impending doom, but did not further clarify. This began around 1130 on the 5th that is yesterday in the afternoon and lasted a few minutes. The patient is [facility] where head CT scan was done. There was no acute abnormality or chronic white matter a bnormalities identified. She did not have any focal deficits and neuro stroke scale of NIH Stroke Sc hipolito was 0. Blood work essentially unremarkable except for mild anemia, hemoglobin 11.5. White blood cell count normal. Coagulation panel unremarkable and chemistries showed creatinine 1.25, suggestin g slight dehydration. Sodium, potassium, chloride, bicarbonate all normal. Liver function studies s how slightly low protein 5.8, slightly low albumin 3.1, mildly elevated triglycerides. Thyroid funct ion and cholesterol panel essentially unremarkable. Urinalysis unremarkable. Chest x-ray showed no evidence of a pneumonia or acute intrathoracic processes. Electrocardiogram showed normal sinus rhyt hm and is a normal study. Subsequent carotid artery ultrasound showed no hemodynamically significant stenosis. The patient has not had a repeat episode and is currently having an EEG done. Past Medical History: Hypertension, reported Alzheimer disease, coronary artery disease, and bladder dysfunction. Allergies: SULFA. Medications: At home, Tylenol 650 mg every 4-6 hours as needed, aspirin 81 mg daily, calcium carbona te 650 mg daily, diazepam 5 mg two tabs daily, donepezil 10 mg daily, escitalopram 5 mg daily, estrad iol 2 mg daily, lisinopril 20 mg daily, memantine 10 mg twice daily, vitamin C 1000 mg daily, vitamin D 2000 units daily, vitamin E 400 units daily, triamterene hydrochlorothiazide 37.5/25 half tablet d aily. Social History: Resides in a half-way. No alcohol, tobacco, or IV drug use. Review of Systems: No recent fevers, chills, nausea, vomiting, myalgias, or arthralgias. No weight loss. No dermatolog ical issues. No pulmonary issues. No active cardiovascular issues such as chest pain with rest or m obilization. No abdominal issues such as pain, diarrhea, distention. No neuromuscular issues in the arms and legs. No rheumatological issues. Physical Examination: Vital Signs: Blood pressure 129/60, pulse 63, respiratory rate 18, temperature 98, oxygen saturation 97% on room air. Weight 138 pounds. Height 5 feet 2 inches. General: Ms. Gutierrez is resting in bed, having an EEG done. HEENT: She is normocephalic, atraumatic. Sclerae anicteric. Oropharynx is pink and moist. Neck: Supple. Chest: Clear. Heart: Regular. Extremities: Show no edema, cyanosis, or clubbing. NEUROLOGIC: She is alert and oriented to situation, place, and person. She follows commands appropr iately. Cranial nerves 2 through 12 are intact. Motor in the arms and legs symmetric. Strength 5/5 proximally and distally. Sensation intact in upper and lower extremities except for stocking-glove loss to light touch, temperature. Reflexes are depressed in the upper and lower extremities, but sym metric. Coordination intact in the upper and lower extremities as well as reflexes. The patient is having an EEG done, but there is no reported issue with ambulation. Assessment: Ms. Gutierrez is a 72-year-old patient with paroxysmal episode of confusion. She is curren tly loaded with Keppra and taking 250 mg twice daily. She has Plavix 75 mg daily, aspirin 162 mg lisa ly for stroke risk reduction, also has Lipitor 40 mg daily for stroke risk reduction. She is on Love nox for deep vein thrombosis prophylaxis. Plan: 1.Continue with Keppra for at least a month. The patient will be seen outpatient and may consider a taper at that point. 2.We will review EEG. 3.We will continue Plavix, aspirin, and statin and may continue BEATRIZ inhibitor for her stroke risk re duction as well as for some renal protection. 4.The patient may be discharged home once EEG is done. Again, follow up in [address] Iqbal' s clinic. THIEN/CIPRIANO Voice ID: [id number] Report ID: [id number]
--- NOTE | 2018-10-26 10:03 | RAD REPORT ---
EXAM DESCRIPTION: X-ray cervical spine one view CLINICAL HISTORY: 72 year-old female with sudden pain in the neck. COMPARISON: None. TECHNIQUE: Single view cross table cervical spine performed on 10/24/2018 at 9:58 PM FINDINGS: The cervical vertebrae are normal in height and alignment. There is slight straightening o f the normal cervical lordosis. The surrounding soft tissues are within normal limits. No definite fr acture or subluxation is identified. There is multilevel disc space narrowing throughout the cervical spine most pronounced at C5-C6. There is prominent hypertrophic spurring at this level. There is mil d degenerative spurring from C3 through C7. No pathologic lytic or sclerotic bone lesions are identif ied. IMPRESSION: 1. No evidence of acute osseous abnormality. 2. Degenerative changes throughout the cervical spine as described above. Electronically signed by: Isamar Vazquez DO 10/24/2018 10:18 PM BOOKKEEPING CLERKS SUPERVISOR Due to temporary technical issues with the PACS/Fluency reporting system, reports are being signed by the in house radiologist as a courtesy to ensure prompt reporting. The interpreting radiologist is f ully responsible for the content of the report.
== END 2018-10-25 16:40 | disposition home or self-care (01) ==
LOC: ER 14:19 → ERHOLD 16:25 → 4TH 17:06
PROVIDERS: ADMIT Internal Medicine; ATTEND Internal Medicine
DX: R47.01 Aphasia (principal); G30.9 Alzheimer's disease, unspecified; F02.80 Dementia in other diseases classified elsewhere, unspecified severity, without behavioral disturbance, psychotic disturbance, mood disturbance, and anxiety; I10 Essential (primary) hypertension; I25.10 Atherosclerotic heart disease of native coronary artery without angina pectoris; Z88.2 Allergy status to sulfonamides
CPT/HCPCS: 36415; 70450; 70551; 71045; 72020; 80048; 80053; 80061; 81001; 82962; 83735; 84443; 85025 ×2; 85610; 93005; 93880; 94760 ×3; 95816; 99285; G0378 ×2; J1650; J1953; J7030 ×4

== ENCOUNTER 2019-04-24 19:45 | Emergency (ER) | payer OTHER, MEDICARE ==
--- OUTSIDE RECORDS SUMMARY | 2019-04-24 19:47 | XMS REPORT | Clinical Summary ---
:1945 Author Organization [facility] Address [address] [place] [address] Care Team Providers Name Role Phone Talon [...] Last Done Comments BREAST CANCER SCREENING 1996 COLONOSCOPY SCREENING 1996 SHINGLES VACCINES (#1) 1996 65+ PNEUMOCOCCAL VACCINE (1 of 2 - PCV13) 12/26/2011 INFLUENZA VACCINE 04/19/2019 Results Not on fileafter 04/23/2018 Insurance Payer Benefit Plan / Subscriber ID Effective Dates Phone Address Type Group AARP AARP SUPPLEMENT xxxxxxxxxxx 2014-Present Commercial MEDICARE MEDICARE PART A xxxxxxxxxx 2012-Present [place], [place] Medicare AND B
[2019-04-24] MEDS ORDERED: NA CHLORIDE 0.9% 500 ML ONE (20:37)
[2019-04-24] MEDS ORDERED: levETIRAcetam 500 MG TAB ONE (20:37)
--- NOTE | 2019-04-24 20:40 | RAD REPORT ---
EXAM DESCRIPTION: CT - Head Brain Wo Cont - 04/24/2019 8:33 pm CLINICAL HISTORY: Transient alteration of awareness COMPARISON: CT head October 2018 TECHNIQUE: Axial 5 mm thick images of the head were obtained without IV contrast. All CT scans are performed using dose optimization technique as appropriate and may include automated exposure control or mA/KV adjustment according to patient size. FINDINGS: No intracranial hemorrhage, mass, edema or shift of mid-line structures. No acute infarcti on changes seen. Mild atrophy and minimal chronic ischemic change noted. Ventricles are in proportion to any volume loss. Arterial and physiologic calcifications are present. Intracranial findings are s imilar to comparison. Mastoid air cells and visualized portions of the paranasal sinuses are clear. No acute bony findings. IMPRESSION: No acute intracranial finding. Mild atrophy and minimal chronic ischemic change. These findings match recent comparison.
[2019-04-24 21:19] LABS: Absolute Lymphocytes (CBC) 1.4 K/uL (0.7-4.9); Basophils % 0.9 % (0-1.3); Hematocrit 38.6 % (36.0-45.0); MPV 7.4 fL (7.6-11.3); RBC Red Blood Cell Count 4.27 M/uL (3.86-4.86)
[2019-04-24 21:34] LABS: Potassium 4.1 mmol/L (3.5-5.1)
[2019-04-24 22:57] LABS: Urine Blood NEGATIVE (NEG); Urine Glucose NEGATIVE (NEG); Urine Protein NEGATIVE (NEG); Urine Specific Gravity <1.005 (1.005-1.030)
[2019-04-24 22:59] LABS: Urine Bacteria <20 /HPF (<20); Urine Culture Reflex Order NOT NEEDED; Urine RBC NONE SEEN /HPF (NONE SEEN)
--- NOTE | 2019-04-25 00:07 | ER ---
Nurse's Notes [facility] Name: Gavi Gutierrez Age: 73 yrs Sex: Female : 1945 Arrival Date: 04/24/2019 Time: 19:48 Bed 20 Private MD: Diagnosis: Altered mental status, unspecified;Epilepsy and recurrent seizures Presentation: 04/24 19:49 Presenting complaint: "She lives at [facility] she has Alzheimer's. She was here 5 aj1 months ago with the same kind of issue as she is having now, they were sure if it was a TIA or a seizure. Dao Cox called me at 7:15 and said that she came out of her room and she was talking to the lady at the desk and she wasn't making any sense. Her daughter in law said that Dao Cox called this morning because she was out of her seizure medicine, and when they called her doctor they said they wouldn't refill it until she was seen in the office so she's been out of that for 2 days" Patient's sister states that when she arrived at [facility] the patient appeared more confused than normal and didn't seem to recognize her. States that she is starting to appear more like herself. Transition of care: patient was received from another setting of care (long-term care facility), [facility]. Onset of symptoms was April 24, 2019. Risk Assessment: Do you want to hurt yourself or someone else? Patient reports no desire to harm self or others. Initial Sepsis Screen: Does the patient meet any 2 criteria? No. Patient's initial sepsis screen is negative. Does the patient have a suspected source of infection? No. Patient's initial sepsis screen is negative. Care prior to arrival: None. 19:49 Method Of Arrival: Ambulatory aj1 19:49 Acuity: BROWN 3 aj1 Triage Assessment: 19:58 General: Appears in no apparent distress. comfortable, Behavior is calm, cooperative, aj1 appropriate for age. Pain: Denies pain. Neuro: Level of Consciousness is awake, alert, obeys commands, confused, Oriented to person. Cardiovascular: Patient's skin is warm and dry. Respiratory: Airway is patent Respiratory effort is even, unlabored, Respiratory pattern is regular, symmetrical. Historical: - Allergies: 19:58 Sulfa (Sulfonamide Antibiotics); aj1 - Home Meds: 19:58 aspirin 81 mg Oral chew 1 tab once daily [Active]; bupropion HCl 150 mg Oral TbER 1 tab aj1 2 times per day [Active]; carvedilol 6.25 mg oral tab 1 tab 2 times per day [Active]; calcium carbonate 600 mg (1,500 mg) Oral tab 600 mg daily [Active]; coenzyme Q10 100 mg oral cap daily [Active]; diazepam 5 mg Oral tab 1 tab 2 times per day [Active]; memantine 10 mg Oral tab 1 tab 2 times per day [Active]; vitamin E 400 unit Oral cap 400 unit daily [Active]; latanoprost 0.005 % ophthalmic drop 1 drop once daily [Active]; levetiracetam 250 mg oral tab 1 tabs 2 times per day [Active]; melatonin 3 mg Oral tab 3 mg daily [Active]; donepezil 10 mg Oral tab 1 tab once daily [Active]; - PMHx: 19:58 bladder dysfunction; CAD; Dementia; Hypertension; progressive alzheimers; aj1 - Immunization history:: Flu vaccine is up to date. - Social history:: Smoking status: Patient/guardian denies using tobacco. - Ebola Screening: : Patient denies travel to an Ebola-affected area in the 21 days before illness onset. - Family history:: not pertinent. - Hospitalizations: : No recent hospitalization is reported. Screenin:26 Abuse screen: Denies threats or abuse. Nutritional screening: No deficits noted. jb4 Tuberculosis screening: No symptoms or risk factors identified. Fall Risk IV access (20 points). Mental Status- Oriented to own ability (0 pts). Total Rao Fall Scale indicates No Risk (0-24 pts). Assessment: 20:10 General: Appears in no apparent distress. comfortable, Behavior is calm, cooperative, jb4 appropriate for age. Pain: Denies pain. Neuro: Level of Consciousness is awake, alert, obeys commands, Oriented to person, place. Cardiovascular: Patient's skin is warm and dry. Rhythm is sinus rhythm. Respiratory: Airway is patent Respiratory effort is even, unlabored, Respiratory pattern is regular, symmetrical. GI: No deficits noted. No signs and/or symptoms were reported involving the gastrointestinal system. : No deficits noted. No signs and/or symptoms were reported regarding the genitourinary system. EENT: No deficits noted. No signs and/or symptoms were reported regarding the EENT system. Derm: Skin is intact, Skin is pink, warm \\T\\ dry. Musculoskeletal: Circulation, motion, and sensation intact. Range of motion: intact in all extremities. 21:24 Reassessment: Patient appears in no apparent distress at this time. No changes from jb4 previously documented assessment. Patient and/or family updated on plan of care and expected duration. Pain level reassessed. 22:37 Reassessment: Patient appears in no apparent distress at this time. No changes from jb4 previously documented assessment. Patient and/or family updated on plan of care and expected duration. Pain level reassessed. Pt is resting comfortably with sister at the bedside. 23:30 Reassessment: Patient appears in no apparent distress at this time. No changes from jb4 previously documented assessment. Patient and/or family updated on plan of care and expected duration. Pain level reassessed. 04/25 00:20 Reassessment: Patient appears in no apparent distress at this time. No changes from jb4 previously documented assessment. Patient and/or family updated on plan of care and expected duration. Pain level reassessed. PT discharged home from Ed with family member, left ED ambulatory, verbalized understanding of d/c and follow up instruction.s. Vital Signs: 04/24 19:58 BP 191 / 81; Pulse 69; Resp 18; Temp 97.0; Pulse Ox 99% on R/A; Pain 0/10; aj1 21:15 BP 165 / 76; Pulse 64; Resp 18; Pulse Ox 97% on R/A; jb4 22:30 BP 142 / 62; Pulse 65; Resp 18; Pulse Ox 98% on R/A; jb4 23:30 BP 141 / 69; Pulse 67; Resp 16; Pulse Ox 96% on R/A; jb4 04/25 00:25 BP 147 / 66; Pulse 64; Resp 18; Pulse Ox 97% on R/A; jb4 ED Course: 04/24 19:48 Patient arrived in ED. ds1 19:55 Triage completed. aj1 19:58 Arm band placed on Patient placed in an exam room. aj1 20:02 Justin Arteaga MD is Attending Physician. rn 20:[address] nj 20:30 Radiology exam delayed due to PT IN BATHROOM AT THIS TIME. nj 20:31 Per Sheikh, RN is Primary Nurse. jb4 20:34 CT Head Brain wo Cont In Process Unspecified. EDMS 21:26 Patient has correct armband on for positive identification. Bed in low position. Call jb4 light in reach. Side rails up X 1. Pulse ox on. NIBP on. 22:11 CT Head Angio In Process Unspecified. EDMS 22:11 CT Neck Angio In Process Unspecified. EDMS 04/25 00:20 No provider procedures requiring assistance completed. IV discontinued, intact, jb4 bleeding controlled, No redness/swelling at site. Administered Medications: 04/24 20:45 Drug: Keppra 500 mg Route: PO; jb4 21:15 Follow up: Response: No adverse reaction jb4 21:16 Drug: NS 0.9% 500 ml Route: IV; Rate: bolus; Site: left antecubital; jb4 21:40 Follow up: Response: No adverse reaction; IV Status: Completed infusion; IV Intake: jb4 500ml Outcome: 04/25 00:05 Discharge ordered by . rn 00:20 Discharged to home ambulatory, with family. jb4 00:20 Condition: stable 00:20 Discharge instructions given to patient, family, Instructed on discharge instructions, follow up and referral plans. medication usage, Demonstrated understanding of instructions, follow-up care, medications, Prescriptions given X 1. 00:25 Patient left the ED. jb4 Signatures: Dispatcher [employer] EDGA Samara Andrews RN RN aj1 Cherrie Gray ds1 Justin Arteaga MD MD rn Bryson, James, RN RN mary [email or web address] Jerson Tavarez Corrections: (The following items were deleted from the chart) 04/24 22:38 21:24 Reassessment: Patient appears in no apparent distress at this time. Patient jb4 and/or family updated on plan of care and expected duration. Pain level reassessed. Patient is alert, oriented x 3, equal unlabored respirations, skin warm/dry/pink. jb4
--- NOTE | 2019-04-25 00:08 | EDPHYS ---
Physician Documentation [facility] Name: Gavi Gutierrez Age: 73 yrs Sex: Female : 1945 Arrival Date: 04/24/2019 Time: 19:48 Bed 20 Private MD: ED Physician Justin Arteaga HPI: 04/24 20:15 This 73 yrs old Female presents to ER via Ambulatory with complaints of rn Altered Mental Status, Confusion. 20:15 The patient presents with confusion. Onset: The symptoms/episode began/occurred today. rn Possible causes: unknown. Current symptoms: In the emergency department the patient's symptoms have resolved. The patient has experienced a previous episode. The patient has not recently seen a physician. Sister reports patient was reported to be confused earlier in day, no seizure activity noted, but seemed confused and had staff had trouble understanding her, has been out of keppra for 2 days, patient unaware of episode, has alzheimers. Patient reports feels fine, sister states now back to baseline, entire episode lasted approx 40 min. Reports happened before about 5 months ago, workup was negative, admitted, Dr. Biggs put her on keppra and hasn't happened since. Denies headache/trauma/urinary symptoms. No abd/chest pain. No cough.. Historical: - Allergies: 19:58 Sulfa (Sulfonamide Antibiotics); aj1 - Home Meds: 19:58 aspirin 81 mg Oral chew 1 tab once daily [Active]; bupropion HCl 150 mg Oral TbER 1 tab aj1 2 times per day [Active]; carvedilol 6.25 mg oral tab 1 tab 2 times per day [Active]; calcium carbonate 600 mg (1,500 mg) Oral tab 600 mg daily [Active]; coenzyme Q10 100 mg oral cap daily [Active]; diazepam 5 mg Oral tab 1 tab 2 times per day [Active]; memantine 10 mg Oral tab 1 tab 2 times per day [Active]; vitamin E 400 unit Oral cap 400 unit daily [Active]; latanoprost 0.005 % ophthalmic drop 1 drop once daily [Active]; levetiracetam 250 mg oral tab 1 tabs 2 times per day [Active]; melatonin 3 mg Oral tab 3 mg daily [Active]; donepezil 10 mg Oral tab 1 tab once daily [Active]; - PMHx: 19:58 bladder dysfunction; CAD; Dementia; Hypertension; progressive alzheimers; aj1 - Immunization history:: Flu vaccine is up to date. - Social history:: Smoking status: Patient/guardian denies using tobacco. - Ebola Screening: : Patient denies travel to an Ebola-affected area in the 21 days before illness onset. - Family history:: not pertinent. - Hospitalizations: : No recent hospitalization is reported. ROS: 20:15 Constitutional: Negative for fever, chills, and weight loss, Eyes: Negative for injury, rn pain, redness, and discharge, Neck: Negative for injury, pain, and swelling, Cardiovascular: Negative for chest pain, palpitations, and edema, Respiratory: Negative for shortness of breath, cough, wheezing, and pleuritic chest pain, Abdomen/GI: Negative for abdominal pain, nausea, vomiting, diarrhea, and constipation, MS/Extremity: Negative for injury and deformity, Skin: Negative for injury, rash, and discoloration, Neuro: Negative for headache, weakness, numbness, tingling Exam: 20:15 Constitutional: This is a well developed, well nourished patient who is awake, alert, rn and in no acute distress. Sitting in bed with legs crossed, shirt tucked in. Head/Face: Normocephalic, atraumatic. Eyes: Pupils equal round and reactive to light, extra-ocular motions intact. Lids and lashes normal. Conjunctiva and sclera are non-icteric and not injected. Cornea within normal limits. Periorbital areas with no swelling, redness, or edema. ENT: MMM Neck: Trachea midline, no thyromegaly or masses palpated, and no cervical lymphadenopathy. Supple, full range of motion without nuchal rigidity, or vertebral point tenderness. No Meningismus. Cardiovascular: Regular rate and rhythm. No pulse deficits. Respiratory: Lungs have equal breath sounds bilaterally, clear to auscultation. No increased work of breathing, no retractions or nasal flaring. Abdomen/GI: Soft, non-tender MS/ Extremity: Pulses equal, no cyanosis. Neurovascular intact. Full, normal range of motion. Equal circumference. Neuro: Awake and alert, GCS 15, oriented to person, place, and situation, not time. Cranial nerves II-XII grossly intact. Motor strength 5/5 in all extremities. Sensory grossly intact. Cerebellar exam normal. 21:39 ECG was reviewed by the Attending Physician. rn Vital Signs: 19:58 BP 191 / 81; Pulse 69; Resp 18; Temp 97.0; Pulse Ox 99% on R/A; Pain 0/10; aj1 21:15 BP 165 / 76; Pulse 64; Resp 18; Pulse Ox 97% on R/A; jb4 22:30 BP 142 / 62; Pulse 65; Resp 18; Pulse Ox 98% on R/A; jb4 23:30 BP 141 / 69; Pulse 67; Resp 16; Pulse Ox 96% on R/A; jb4 04/25 00:25 BP 147 / 66; Pulse 64; Resp 18; Pulse Ox 97% on R/A; jb4 MDM: 04/24 20:02 Patient medically screened. rn 04/25 00:02 Differential Diagnosis: CVA, electrolyte abnormality, intracranial bleed, seizure, TIA, rn volume depletion. Data reviewed: vital signs, nurses notes, lab test result(s), EKG, radiologic studies, CT scan, and as a result, I will discharge patient. Counseling: I had a detailed discussion with the patient and/or guardian regarding: the historical points, exam findings, and any diagnostic results supporting the discharge/admit diagnosis, lab results, radiology results, the need for outpatient follow up, to return to the emergency department if symptoms worsen or persist or if there are any questions or concerns that arise at home. Response to treatment: the patient's symptoms have resolved after treatment, the patient's condition has returned to base line, and as a result, I will discharge patient. Special discussion: I discussed with the patient/guardian in detail that at this point there is no indication for admission to the hospital. It is understood, however, that if the symptoms persist or worsen the patient needs to return immediately for re-evaluation. Based on the history and exam findings, there is no indication for further emergent testing or inpatient evaluation. I discussed with the patient/guardian the need to see the neurologist for further evaluation of the symptoms. I discussed with the patient/guardian the need to see the primary care provider for further evaluation of the symptoms. ED course: Back to baseline, no further etiologies found, neg ct angio head/neck, neg UA, possible seizure since out of meds vs TIA, will dc home with close pcp f/u. . 04/24 20:14 Order name: CBC with Diff; Complete Time: 21:39 rn 04/24 20:14 Order name: Basic Metabolic Panel; Complete Time: 21:39 rn 04/24 20:14 Order name: CT Head Brain wo Cont; Complete Time: 20:43 rn 04/24 20:14 Order name: Urine Culture rn 04/24 20:14 Order name: Urine Microscopic Only; Complete Time: 23:47 rn 04/24 22:43 Order name: Urine Dipstick--Ancillary (enter results); Complete Time: 23:47 mw2 04/24 20:14 Order name: IV Start; Complete Time: 21:12 rn 04/24 20:14 Order name: Urine Dipstick-Ancillary (obtain specimen); Complete Time: 22:32 rn 04/24 20:14 Order name: EKG; Complete Time: 20:15 rn 04/24 20:14 Order name: EKG - Nurse/Tech; Complete Time: 21:12 rn 04/24 20:44 Order name: CT Head Angio rn 04/24 20:44 Order name: CT Neck Angio rn EC/06 21:39 Rate is 66 beats/min. Rhythm is regular. QRS Lund is Normal. FL interval is normal. QRS rn interval is normal. QT interval is normal. No Q waves. T waves are Normal. No ST changes noted. Clinical impression: Normal ECG. Interpreted by me. Reviewed by me. Administered Medications: 20:45 Drug: Keppra 500 mg Route: PO; jb4 21:15 Follow up: Response: No adverse reaction jb4 21:16 Drug: NS 0.9% 500 ml Route: IV; Rate: bolus; Site: left antecubital; jb4 21:40 Follow up: Response: No adverse reaction; IV Status: Completed infusion; IV Intake: jb4 500ml Disposition: 04/25/19 00:05 Discharged to Home. Impression: Altered mental status, unspecified, Epilepsy and recurrent seizures. - Condition is Stable. - Discharge Instructions: Seizure, Adult. - Prescriptions for Keppra 250 mg Oral tablet - take 1 tablet by ORAL route 2 times per day; 60 tablet. - Medication Reconciliation Form, Thank You Letter, Antibiotic Education, Prescription Opioid Use form. - Follow up: Private Physician; When: As needed; Reason: Recheck today's complaints, Re-evaluation by your physician. - Problem is new. - Symptoms are resolved. Signatures: Dispatcher [employer] EDSamara Walsh RN RN aj1 Justin Arteaga MD MD rn Bryson, James, RN RN jb4 Corrections: (The following items were deleted from the chart) 04/25 00:25 00:05 04/25/2019 00:05 Discharged to Home. Impression: Altered mental status, jb4 unspecified; Epilepsy and recurrent seizures. Condition is Stable. Forms are Medication Reconciliation Form, Thank You Letter, Antibiotic Education, Prescription Opioid Use. Follow up: Private Physician; When: As needed; Reason: Recheck today's complaints, Re-evaluation by your physician. Problem is new. Symptoms are resolved. rn
--- NOTE | 2019-04-25 09:21 | EKG ---
Test Date: 2019-04-24 Test Time: 20:51:38 Computer Systems Support Specialist: JHOANA MEASUREMENT RESULTS: Intervals: Rate: 66 NE: 146 QRSD: 70 QT: 416 QTc: 436 [place]: P: 59 NE: 146 QRS: 42 T: 55 INTERPRETIVE STATEMENTS: Normal sinus rhythm Normal ECG Compared to ECG 09/23/2018 14:35:22 No significant changes Electronically Signed On 04-25-19 09:20:21 CDT by Claudio Patrick
--- NOTE | 2019-04-25 11:48 | RAD REPORT ---
EXAM DESCRIPTION: CT - Head angio - 04/25/2019 2:02 am CLINICAL HISTORY: CONFUSED COMPARISON: None. TECHNIQUE: CT HEAD ANGIOGRAPHY WITH IV CONTRAST, CT NECK ANGIOGRAPHY WITH IV CONTRAST on 04/24/2019 8: 44 PM CDT This exam was performed according to our departmental dose-optimization program, which includes autom ated exposure control, adjustment of the mA and/or kV according to patient size and/or use of iterati ve reconstruction technique. MIP reconstructions were generated. Stenoses are calculated by NASCET criteria. FINDINGS: Bilateral common carotid arteries are diffusely patent. There are scattered calcifications at the origins of both internal carotid arteries without stenosis. The extracranial vertebral arteri es are patent. The intracranial vertebral basilar system is diffusely patent. Bilateral posterior cer ebral arteries are patent. Anterior communicating artery is patent. The anterior and middle cerebral arteries are patent. IMPRESSION: No significant vascular bodies. No stenosis, aneurysm or vessel occlusion. CAROTID STENOSIS REFERENCE USING NASCET CRITERIA: % ICA stenosis = (1 - narrowest ICA diameter/diameter of distal cervical ICA) x 100. Mild - Moderate - 50-69% stenosis. Severe - 70-94% stenosis. Near occlusion - 95-99% stenosis. Occluded - 100% stenosis. Electronically signed by: Hal Berger MD 04/24/2019 10:27 PM CDT Due to temporary technical issues with the PACS/Fluency reporting system, reports are being signed by the in house radiologist as a courtesy to ensure prompt reporting. The interpreting radiologist is f ully responsible for the content of the report.
--- NOTE | 2019-04-25 11:49 | RAD REPORT ---
EXAM DESCRIPTION: CT - Neck Angio - 04/25/2019 2:00 am CLINICAL HISTORY: CONFUSED COMPARISON: None. TECHNIQUE: CT HEAD ANGIOGRAPHY WITH IV CONTRAST, CT NECK ANGIOGRAPHY WITH IV CONTRAST on 04/24/2019 8: 44 PM CDT This exam was performed according to our departmental dose-optimization program, which includes autom ated exposure control, adjustment of the mA and/or kV according to patient size and/or use of iterati ve reconstruction technique. MIP reconstructions were generated. Stenoses are calculated by NASCET criteria. FINDINGS: Bilateral common carotid arteries are diffusely patent. There are scattered calcifications at the origins of both internal carotid arteries without stenosis. The extracranial vertebral arteri es are patent. The intracranial vertebral basilar system is diffusely patent. Bilateral posterior cer ebral arteries are patent. Anterior communicating artery is patent. The anterior and middle cerebral arteries are patent. IMPRESSION: No significant vascular bodies. No stenosis, aneurysm or vessel occlusion. CAROTID STENOSIS REFERENCE USING NASCET CRITERIA: % ICA stenosis = (1 - narrowest ICA diameter/diameter of distal cervical ICA) x 100. Mild - Moderate - 50-69% stenosis. Severe - 70-94% stenosis. Near occlusion - 95-99% stenosis. Occluded - 100% stenosis. Electronically signed by: Hal Berger MD 04/24/2019 10:27 PM CDT Due to temporary technical issues with the PACS/Fluency reporting system, reports are being signed by the in house radiologist as a courtesy to ensure prompt reporting. The interpreting radiologist is f ully responsible for the content of the report.
== END 2019-04-25 00:25 | disposition home or self-care (01) ==
LOC: ER 19:45
DX: G40.802 Other epilepsy, not intractable, without status epilepticus (principal); I10 Essential (primary) hypertension; G30.9 Alzheimer's disease, unspecified; F02.80 Dementia in other diseases classified elsewhere, unspecified severity, without behavioral disturbance, psychotic disturbance, mood disturbance, and anxiety; I25.10 Atherosclerotic heart disease of native coronary artery without angina pectoris; Z79.82 Long term (current) use of aspirin; Z88.2 Allergy status to sulfonamides
CPT/HCPCS: 93005; 87088; 85025; 87086; 80048; 36415; 70450; 70496; 70498; Q9967; 81003; 81015; 99285

== ENCOUNTER 2022-09-22 17:36 | Emergency (ER) | payer OTHER, MEDICARE ==
--- OUTSIDE RECORDS SUMMARY | 2022-09-22 17:40 | XMS REPORT | Continuity of Care Document ---
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-25 [place] 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:00: of s disease s disease 00 Medi ramona e Personalit Personalit Disease Active 2012-09 [facility] y change y change 10-14 Colleg e due to due to 00:00: of conditions conditions 00 Me dicin classified classified e elsewhere elsewhere 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[facility] cognitive cognitive 10-19 [facility] impairment impairment 00:00: of , so , so 00 Medicin stated stated e Hypercalce Hypercalce Disease Active B salome teddy teddy 10-19 [place] 00:00: of 00 Medicin e Allergies, Adverse Reactions, Alerts Allergy Allergy Status Severity Reaction(s) Onset Inactive Treating Comm ents Source Name Type Date Date Clinician Cephalos Propensi Active [facility] porins ty to 4-05 [place] adverse 00:00: of reaction 00 Medicin s to e drug Codeine Propensi Active [facility] ty to 4-05 [place] adverse 00:00: of reaction 00 Medicin s to e drug Erythrom Propensi Active [facility] ycin ty to 4-05 College adverse 00:00: of reaction 00 Medicin s to e drug Tetracyc Propensi Active [facility] lines & ty to 4-05 College Related adverse 00:00: of reaction 00 Medicin s to e drug Iodine Propensi Active Mild sensitive [facility] ty to 3-16 College adverse 00:00: of reaction 00 Medicin s to e drug Sulfa Propensi Active 2010-09 [facility] Antibiot ty to 0-04 College ics adverse 00:00: of reaction 00 Medicin s to e drug Social History Social Habit Start Date Stop Date Quantity Comments Source Alcohol intake 2022-08-20 2022-08-20 Current [facility] Col lege of 00:00:00 00:00:00 non-drinker of Medicine alcohol (finding) Exposure to 2022-01-04 2022-01-14 Not sure [facility] Colleg e of SARS-CoV-2 00:00:00 20:45:00 Medicine (event) Tobacco use and 2018-01-13 2018-01-13 Smokeless tobacco [facility] of exposure 00:00:00 00:00:00 non-user Medicine Sex Ass[birth year] At [birth year] [facility] Smoking Status Start Date Stop Date Source Tobacco smoking consumption unknown [facility] Never smoked tobacco [facility] of Medicine Medications Ordered Filled Start Stop Current Ordering Indication Dosage Frequency Signature Comments Components Source Medication Medication Date Date Medication? Clinician (SIG) Name Name Ascorbic 2021-09 Yes Take by [facility] Acid 10-21 mouth. [place] (VITAMIN C) 11:21: of 1000 MG 45 Medicin TABS e aspirin 81 2021-09 Yes 81mg Take 81 mg [facility] MG tablet 02 by mouth Colleg e 11:21: daily. of 45 Medicin e carvedilol 2021-09 Yes 6.25mg Take 6.25 [facility] (COREG) 2-02 mg by [place] 6.25 MG 11:21: mouth 2 of tablet 45 times Medicin daily e (with meals). buPROPion 2021-09 Yes 150mg Take 150 [place] nas (WELLBUTRIN 2-02 mg by [place] [facility] 11:21: mouth two of 150 MG SR 45 times Medicin tablet daily. e lisinopril 2021-09 Yes 40mg Take 40 mg [facility] (PRINIVIL, 2-02 by mouth Colle ge ZESTRIL) 40 11:21: daily. of MG tablet 45 Medicin e quetiapine 0 Yes [id number] 25mg TAKE 1 [facility] (SEROQUEL) 9-06 TABLET BY [facility] 25 MG 00:00: MOUTH TWO of tablet 00 TIMES Medicin DAILY. e Ascorbic Yes Take by [facility] Acid 4-29 mouth. [place] (VITAMIN C) 11:00: of 1000 MG 23 Medicin TABS e aspirin 81 Yes 81mg Take 81 mg [facility] MG tablet 4-29 by mouth Colleg e 11:00: daily. of 23 Medicin e carvedilol Yes 6.25mg Take 6.25 [facility] (COREG) 4-29 mg by [place] 6.25 MG 11:00: mouth 2 of tablet 23 times Medicin daily e (with meals). buPROPion Yes 150mg Take 150 [place] nas (WELLBUTRIN 4-29 mg by [place] [facility] 11:00: mouth two of 150 MG SR 23 times Medicin tablet daily. e lisinopril Yes 40mg Take 40 mg [facility] (PRINIVIL, 4-29 by mouth Colle ge ZESTRIL) 40 11:00: daily. of MG tablet 23 Medicin e donepezil 0 Yes [id number] 10mg Take 1 [place] nas (ARICEPT) 4-29 Tablet by Colle ge 10 MG 00:00: mouth of tablet 00 every Medicin morning. e memantine 0 Yes [id number] 10mg Take 1 [place] nas (NAMENDA) 4-29 Tablet by Colle ge 10 MG 00:00: mouth two of tablet 00 times Medicin daily. e quetiapine 0 Yes 25mg Take 1 [facility] (SEROQUEL) 4-29 Tablet by [facility] 25 MG 00:00: mouth two of tablet 00 times Medicin daily. e donepezil Yes [id number] 10mg Take 1 [facility] (ARICEPT) 4-29 Tablet by Colle ge 10 MG 00:00: mouth of tablet 00 every Medicin morning. e memantine Yes [id number] 10mg Take 1 [facility] (NAMENDA) 4-29 Tablet by Colle ge 10 MG 00:00: mouth two of tablet 00 times Medicin daily. e quetiapine 2021- No 25mg TAKE 1 [facility] (SEROQUEL) 3-03 04-29 TABLET BY Col lege 25 MG 00:00: 00:00 MOUTH TWO of tablet 00 :00 TIMES Medicin DAILY. e Ascorbic 2020-09 Yes Take by [facility] Acid 2-17 mouth. [place] (VITAMIN C) 11:40: of 1000 MG 44 Medicin TABS e aspirin 81 2020-09 Yes 81mg Take 81 mg [facility] MG tablet 2-17 by mouth Colleg e 11:40: daily. of 44 Medicin e carvedilol 2020-09 Yes 6.25mg Take 6.25 [facility] (COREG) 2-17 mg by [place] 6.25 MG 11:40: mouth 2 of tablet 44 times Medicin daily e (with meals). buPROPion 2020-09 Yes 150mg Take 150 [place] nas (WELLBUTRIN 2-17 mg by [place] , [facility]) 11:40: mouth two of 150 MG SR 44 times Medicin tablet daily. e lisinopril 2020-09 Yes 40mg Take 40 mg [facility] (PRINIVIL, 2-17 by mouth Colle ge ZESTRIL) 40 11:40: daily. of MG tablet 44 Medicin e Ascorbic 2020-09 Yes Take by [facility] Acid 2-17 mouth. [place] (VITAMIN C) 11:40: of 1000 MG 44 Medicin TABS e aspirin 81 2020-09 Yes 81mg Take 81 mg [facility] MG tablet 2-17 by mouth Colleg e 11:40: daily. of 44 Medicin e carvedilol 2020-09 Yes 6.25mg Take 6.25 [facility] (COREG) 2-17 mg by [place] 6.25 MG 11:40: mouth 2 of tablet 44 times Medicin daily e (with meals). buPROPion 2020-09 Yes 150mg Take 150 [place] nas (WELLBUTRIN 2-17 mg by [place] [facility] 11:40: mouth two of 150 MG SR 44 times Medicin tablet daily. e lisinopril 2020-09 Yes 40mg Take 40 mg [facility] (PRINIVIL, 2-17 by mouth Colle ge ZESTRIL) 40 11:40: daily. of MG tablet 44 Medicin e quetiapine 2020-09 Yes 25mg Take 1 [facility] (SEROQUEL) 2-01 Tablet by [facility] 25 MG 00:00: mouth two of tablet 00 times Medicin daily. e quetiapine 2020-09 Yes 25mg Take 1 [facility] (SEROQUEL) 2-01 Tablet by [facility] 25 MG 00:00: mouth two of tablet 00 times Medicin daily. e memantine Yes [id number] 10mg Take 1 [place] nas (NAMENDA) 5-19 Tablet by Colle ge 10 MG 00:00: mouth two of tablet 00 times Medicin daily. e memantine Yes [id number] 10mg Take 1 [place] nas (NAMENDA) 5-19 Tablet by Colle ge 10 MG 00:00: mouth two of tablet 00 times Medicin daily. e memantine 2021- No [id number] 10mg Take 1 [facility] (NAMENDA) 5-19 -29 Tablet by [facility] 10 MG 00:00: 00:00 mouth two of tablet 00 :00 times Medicin daily. e donepezil Yes [id number] 10mg Take 1 [place] [facility] (ARICEPT) 4-15 Tablet by Colle ge 10 MG 00:00: mouth of tablet 00 every Medicin morning. e donepezil Yes [id number] 10mg Take 1 [place] nas (ARICEPT) 4-15 Tablet by Colle ge 10 MG 00:00: mouth of tablet 00 every Medicin morning. e donepezil 2021- No [id number] 10mg Take 1 [facility] (ARICEPT) 4-15 -29 Tablet by [facility] 10 MG 00:00: 00:00 mouth of tablet 00 :00 every Medicin morning. e buPROPion 2019-09 Yes 150mg Take 150 [place] nas (WELLBUTRIN 0-26 mg by [place] , [facility]) 20:21: mouth two of 150 MG SR 28 times Medicin tablet daily. e lisinopril 2019-09 Yes 40mg Take 40 mg [facility] (PRINIVIL, 0-26 by mouth Colle ge ZESTRIL) 40 20:21: daily. of MG tablet 28 Medicin e LISINOPRIL- 2019-09 2020- No 40mg Take 40 mg [facility] HYDROCHLORO 0-26 10-26 by mouth. Co llege THIAZIDE OR 20:21: 00:00 Indication of 06 :00 s: do not Medicin take if e syst less than 110 LISINOPRIL- 2019-09 2020- No 40mg Take 40 mg [facility] HYDROCHLORO 0-26 10-26 by mouth. Co llege THIAZIDE OR 20:21: 00:00 Indication of 06 :00 s: do not Medicin take if e syst less than 110 buPROPion 2019-09 2020- No 150mg Take 150 [facility] (WELLBUTRIN 0-26 10-26 mg by Colleg e ) 100 MG 20:07: 00:00 mouth of tablet 07 :00 daily. Medicin e buPROPion 2019-09 2020- No 150mg Take 150 [facility] (WELLBUTRIN 0-26 10-26 mg by Colleg e ) 100 MG 20:07: 00:00 mouth of tablet 07 :00 daily. Medicin e Ascorbic 2019-09 Yes Take by [facility] Acid 0-22 mouth. [place] (VITAMIN C) 16:08: of 1000 MG 27 Medicin TABS e aspirin 81 2019-09 Yes 81mg Take 81 mg [facility] MG tablet 0-22 by mouth Colleg e 16:08: daily. of 27 Medicin e carvedilol 2019-09 Yes 6.25mg Take 6.25 [facility] (COREG) 0-22 mg by [place] 6.25 MG 16:08: mouth 2 of tablet 27 times Medicin daily e (with meals). Ascorbic 2019-09 Yes Take by [facility] Acid 0-22 mouth. [place] (VITAMIN C) 16:08: of 1000 MG 27 Medicin TABS e aspirin 81 2019- Yes 81mg Take 81 mg [facility] MG tablet 0-22 by mouth Colleg e 16:08: daily. of 27 Medicin e carvedilol 2019-09 Yes 6.25mg Take 6.25 [facility] (COREG) 0-22 mg by [place] 6.25 MG 16:08: mouth 2 of tablet 27 times Medicin daily e (with meals). diazepam 2019-09 2020- No 5mg Take 5 mg [place] [facility] (VALIUM) 5 0-22 10-22 by mouth [facility] MG tablet 16:08: 00:00 every 6 of 21 :00 hours as Medicin needed for e Anxiety. diazepam 2019-09- No 5mg Take 5 mg [place] [facility] (VALIUM) 5 0-22 10-22 by mouth [facility] MG tablet 16:08: 00:00 every 6 of 21 :00 hours as Medicin needed for e Anxiety. donepezil 2019-09 Yes [id number] 10mg Take 1 Tab [facility] (ARICEPT) 0-22 by mouth Colleg e 10 MG 00:00: every of tablet 00 morning. Medicin e memantine 2019-09 Yes [id number] 10mg Take 1 Tab [facility] (NAMENDA) 0-22 by mouth Colleg e 10 MG 00:00: two times of tablet 00 daily. Medicin e buPROPion 2019-09- No [facility] (WELLBUTRIN 0-17 07-10 [place] , [facility]) 00:00: 00:00 of 150 MG SR 00 :00 Medicin tablet e lisinopril 2019-09- No [facility] (PRINIVIL, 0-15 07-10 [place] ZESTRI) 40 00:00: 00:00 of MG tablet 00 :00 Medicin e donepezil 2020- No [id number] 10mg Take 1 Tab [facility] (ARICEPT) 06-11- by mouth Colle ge 10 MG 00:00: 00:00 every of tablet 00 :00 morning. Medicin e donepezil 2019- No [id number] 10mg Take 1 Tab [facility] (ARICEPT) 9- by mouth Colle ge 10 MG 00:00: 00:00 every of tablet 00 :00 morning. Medicin e memantine 2019- No 10mg TAKE 1 TAB [facility] (NAMENDA) 8- BY MOUTH Colle ge 10 MG 00:00: 00:00 TWO TIMES of tablet 00 :00 DAILY. Medicin e memantine 2019- No 10mg TAKE 1 TAB [facility] (NAMENDA) 8-24 10-22 BY MOUTH Colle ge 10 MG 00:00: 00:00 TWO TIMES of tablet 00 :00 DAILY. Medicin e vitamin E 2020-0 Yes [facility] 400 units 1- College capsule 00:00: of 00 Medicin e vitamin E 2020-0 Yes [facility] 400 units 1- College capsule 00:00: of 00 Medicin e vitamin E 2020-0 Yes [facility] 400 units 1- College capsule 00:00: of 00 Medicin e levetiracet 2019-0 Yes [facility] am (KEPPRA) 5-06 [place] 250 MG 00:00: of tablet 00 Medicin e levetiracet 2019-0 Yes [facility] am (KEPPRA) 5-06 [place] 250 MG 00:00: of tablet 00 Medicin e levetiracet 2019-0 Yes [facility] am (KEPPRA) 5-06 [place] 250 MG 00:00: of tablet 00 Medicin e levetiracet 2019-0 Yes [facility] am (KEPPRA) 5-06 [place] 250 MG 00:00: of tablet 00 Medicin e levetiracet 2019-0 Yes [facility] am (KEPPRA) 5-06 [place] 250 MG 00:00: of tablet 00 Medicin e levetiracet 2019-0 Yes [facility] am (KEPPRA) 5-06 [place] 250 MG 00:00: of tablet 00 Medicin e latanoprost 2019-0 Yes [facility] (XALATAN) 4-23 [place] 0.005 % 00:00: of ophthalmic 00 Medicin solution e latanoprost 2019-0 Yes [facility] (XALATAN) 4-23 [place] 0.005 % 00:00: of ophthalmic 00 Medicin solution e latanoprost 2019-0 Yes [facility] (XALATAN) 4-23 [place] 0.005 % 00:00: of ophthalmic 00 Medicin solution e latanoprost 2019-0 Yes [facility] (XALATAN) 4-23 [place] 0.005 % 00:00: of ophthalmic 00 Medicin solution e latanoprost 2019-0 Yes [facility] (XALATAN) 4-23 [place] 0.005 % 00:00: of ophthalmic 00 Medicin solution e latanoprost 2019-0 Yes [facility] (XALATAN) 4-23 [place] 0.005 % 00:00: of ophthalmic 00 Medicin solution e Coenzyme Yes [facility] Q10 09-19 [place] (COQ-10) 00:00: of 100 MG CAPS 00 Medicin e Phenazopyri Yes [facility] (AZO 00 Medicin URINARY e TRACT SUPPORT) 95 & 250-30 MG TBPK Coenzyme Yes [facility] Q10 09-19 [place] (COQ-10) 00:00: of 100 MG CAPS 00 Medicin e Phenazopyri Yes [facility] d-Cranbry-C 09-19 [facility] of (AZO 00 Medicin URINARY e TRACT SUPPORT) 95 & 250-30 MG TBPK Coenzyme Yes [facility] Q10 09-19 [place] (COQ-10) 00:00: of 100 MG CAPS 00 Medicin e Phenazopyri Yes [facility] d-Cranbry-C 09-19 [place] -Probiot 00:00: of (AZO 00 Medicin URINARY e TRACT SUPPORT) 95 & 250-30 MG TBPK Immunizations Ordered Immunization Filled Immunization Date Status Commen ts Source Name Name Influenza Hd 2021-07-02 Completed [employer] [facility] 00:00:00 of Medicine Influenza Hd 2021-07-02 Completed [email or web address] [facility] ge 00:00:00 of Medicine Influenza Hd 2021-07-02 Completed [email or web address] [facility] 00:00:00 of Medicine Influenza Hd 2021-07-02 Completed [email or web address] [facility] 00:00:00 of Medicine Influenza Hd 2018-07-07 Completed [facility] 00:00:00 of Medicine Influenza Hd 2018-07-07 Completed [email or web address] [facility] 00:00:00 of Medicine Influenza Hd 2018-07-07 Completed [email or web address] [facility] 00:00:00 of Medicine Influenza Hd 2018-07-07 Completed [facility] 00:00:00 of Medicine Vital Signs Vital Name Observation Time Observation Value Comments Source Systolic blood 2022-08-20 17:23:00 193 mm[Hg] [facility] pressure Medicine Diastolic blood 2022-08-20 17:23:00 86 mm[Hg] [facility] Medicine Heart rate 2022-08-20 17:23:00 74 /min [facility] Body height 2022-08-20 17:23:00 157.5 cm [facility] of Medicine Body weight 2022-08-20 17:23:00 63.05 kg [facility] of Medicine BMI 2022-08-20 17:23:00 25.42 kg/m2 [facility] Systolic blood 2022-01-15 15:57:00 169 mm[Hg] [facility] of pressure Medicine Diastolic blood 2022-01-15 15:57:00 81 mm[Hg] [facility] College of pressure Medicine Heart rate 2022-01-15 15:57:00 70 /min [facility] C [facility] of Medicine Body weight 2022-01-15 15:57:00 58.968 kg [facility] C [facility] of Medicine BMI 2022-01-15 15:57:00 23.78 kg/m2 [facility] Heart rate 2021-09-04 17:44:00 70 /min [facility] of Medicine Systolic blood 2021-09-04 17:44:00 147 mm[Hg] [facility] College of pressure Medicine Diastolic blood 2021-09-04 17:44:00 84 mm[Hg] [facility] College of pressure Medicine Body height 2021-09-04 17:39:00 157.5 cm [facility] of Medicine Body weight 2021-09-04 17:39:00 55.792 kg [facility] of Medicine BMI 2021-09-04 17:39:00 22.50 kg/m2 [facility] of Medicine Systolic blood 2020-07-10 16:10:00 155 mm[Hg] [facility] College of pressure Medicine Diastolic blood 2020-07-10 16:10:00 84 mm[Hg] [facility] of pressure Medicine Heart rate 2020-07-10 16:10:00 71 /min [facility] of Medicine Body weight 2020-07-10 16:07:00 57.153 kg [facility] BMI 2020-07-10 16:07:00 23.05 kg/m2 [facility] of Medicine Procedures This patient has no known procedures. Plan of Care Planned Activity Planned Date Details Comments Source Future Scheduled 2022-09-02 COVID-19 VACCINE (#1) [facility] Test 23:33:20 [code = COVID-19 VACCINE (#1)] Future Scheduled 2022-09-02 BREAST CANCER [facility] Test 23:33:20 SCREENING [code = BREAST CANCER SCREENING] Future Scheduled 2022-09-02 COLONOSCOPY SCREENING [facility] Test 23:33:20 [code = COLONOSCOPY SCREENING] Future Scheduled 2022-09-02 SHINGLES VACCINES (1 [facility] Test 23:33:20 of 2) [code = SHINGLES VACCINES (1 of 2)] Future Scheduled 2022-09-02 65+ [facility]CCAL [facility] Test 23:33:20 VACCINE (1 - PCV) [code = 65+ PNEUMOCOCCAL VACCINE (1 - PCV)] Future Scheduled 2022-09-02 INFLUENZA VACCINE [facility] Test 23:33:20 [code = INFLUENZA VACCINE] Future Scheduled 2022-08-23 Screening for [facility] of Test 15:13:35 malignant neoplasm of Medici ne colon (procedure) [code = 783037824] Future Scheduled 2022-08-23 Screening for [facility] Col [facility]ge of Test 15:13:35 malignant neoplasm of Medici ne breast (procedure) [code = 284185893] Future Scheduled 2022-08-23 TETANUS SHOT (ADULT) [facility] of Test 15:13:35 [code = TETANUS SHOT Medicin e (ADULT)] Future Scheduled 2022-08-23 BMI FOLLOW UP PLAN [facility] College of Test 15:13:35 [code = BMI FOLLOW UP Medici ne PLAN] Future Scheduled 2022-08-23 Hepatitis C screening [facility] of Test 15:13:35 (procedure) [code = Medicine [id number]] Future Scheduled 2022-08-23 ZOSTER VACCINE (1 of [facility] College of Test 15:13:35 2) [code = ZOSTER Medicine VACCINE (1 of 2)] Future Scheduled 2022-08-23 Screening for [facility] Col [facility]ge of Test 15:13:35 osteoporosis Medicine (procedure) [code = 731308973] Future Scheduled 2022-08-23 Pneumococcal 65+ (1 - [facility] of Test 15:13:35 PCV) [code = Medicine Pneumococcal 65+ (1 - PCV)] Future Scheduled 2022-08-23 MEDICARE AWV (Initial) [facility] of Test 15:13:35 [code = MEDICARE AWV Medicin e (Initial)] Future Scheduled 2022-08-23 COVID-19 Vaccine (3 - Ba [facility] of Test 15:13:35 Booster for Pfizer Medicine series) [code = COVID-19 Vaccine (3 - Booster for Pfizer series)] Future Scheduled 2022-08-23 FLU VACCINE > 6 MONTHS [facility] of Test 15:13:35 [code = FLU VACCINE > Medici ne 6 MONTHS] Future Scheduled 2022-08-23 FALL SCREEN [code = [facility] of Test 15:13:35 FALL SCREEN] Medicine Future Scheduled 2022-05-19 HEPATITIS B VACCINES [facility] Test 19:49:13 (1 of 3 - 3-dose series) [code = HEPATITIS B VACCINES (1 of 3 - 3-dose series)] Future Scheduled 2022-05-19 COVID-19 VACCINE (#1) [facility] Test 19:49:13 [code = COVID-19 VACCINE (#1)] Future Scheduled 2022-05-19 BREAST CANCER [facility] Test 19:49:13 SCREENING [code = BREAST CANCER SCREENING] Future Scheduled 2022-05-19 COLONOSCOPY SCREENING [facility] Test 19:49:13 [code = COLONOSCOPY SCREENING] Future Scheduled 2022-05-19 SHINGLES VACCINES (1 [facility] Test 19:49:13 of 2) [code = SHINGLES VACCINES (1 of 2)] Future Scheduled 2022-05-19 65+ [facility]OCOCCAL [facility] Test 19:49:13 VACCINE (1 - PCV) [code = 65+ PNEUMOCOCCAL VACCINE (1 - PCV)] Future Scheduled 2022-05-19 INFLUENZA VACCINE [facility] Test 19:49:13 [code = INFLUENZA VACCINE] Future Scheduled 2022-01-19 Screening for [facility] Col [facility]ge of Test 18:14:44 malignant neoplasm of Medici ne colon (procedure) [code = [id number]] Future Scheduled 2022-01-19 Screening for [facility] Col [facility]ge of Test 18:14:44 malignant neoplasm of Medici ne breast (procedure) [code = 182513653] Future Scheduled 2022-01-19 COVID-19 Vaccine (1) [facility] of Test 18:14:44 [code = COVID-19 Medicine Vaccine (1)] Future Scheduled 2022-01-19 TETANUS SHOT (ADULT) [facility] of Test 18:14:44 [code = TETANUS SHOT Medicin e (ADULT)] Future Scheduled 2022-01-[address] C [address] [facility] of Test 18:14:44 (procedure) [code = Medicine [id number]] Future Scheduled 2022-01-19 ZOSTER VACCINE (1 of [facility] of Test 18:14:44 2) [code = ZOSTER Medicine VACCINE (1 of 2)] Future Scheduled 2022-01-19 Screening for [facility] Col lege of Test 18:14:44 osteoporosis Medicine (procedure) [code = 124951729] Future Scheduled 2022-01-19 Pneumococcal 65+ (1 of [facility] of Test 18:14:44 1 - PPSV23) [code = Medicine Pneumococcal 65+ (1 of 1 - PPSV23)] Future Scheduled 2022-01-19 MEDICARE AWV (Initial) [facility] of Test 18:14:44 [code = MEDICARE AWV Medicin e (Initial)] Future Scheduled 2022-01-19 FLU VACCINE > 6 MONTHS [facility] of Test 18:14:44 [code = FLU VACCINE > Medici ne 6 MONTHS] Future Scheduled 2022-01-19 FALL SCREEN [code = [facility] of Test 18:14:44 FALL SCREEN] Medicine Future Scheduled 2021-09-20 Screening for [facility] of Test 20:03:24 malignant neoplasm of Medici ne colon (procedure) [code = 738628948] Future Scheduled 2021-09-20 Screening for [facility] of Test 20:03:24 malignant neoplasm of Medici ne breast (procedure) [code = 186099594] Future Scheduled 2021-09-20 COVID-19 Vaccine (1) [facility] of Test 20:03:24 [code = COVID-19 Medicine Vaccine (1)] Future Scheduled 2021-09-20 TETANUS SHOT (ADULT) [facility] of Test 20:03:24 [code = TETANUS SHOT Medicin e (ADULT)] Future Scheduled 2021-09-20 Hepatitis C screening [facility] of Test 20:03:24 (procedure) [code = Medicine [id number]] Future Scheduled 2021-09-20 ZOSTER VACCINE (1 of [facility] of Test 20:03:24 2) [code = ZOSTER Medicine VACCINE (1 of 2)] Future Scheduled 2021-09-20 Screening for [facility] of Test 20:03:24 osteoporosis Medicine (procedure) [code = 519184150] Future Scheduled 2021-09-20 Pneumococcal 65+ (1 of [facility] of Test 20:03:24 1 - PPSV23) [code = Medicine Pneumococcal 65+ (1 of 1 - PPSV23)] Future Scheduled 2021-09-20 MEDICARE AWV (Initial) [facility] of Test 20:03:24 [code = MEDICARE AWV Medicin e (Initial)] Future Scheduled 2021-09-20 FALL SCREEN [code = [facility] of Test 20:03:24 FALL SCREEN] Medicine Future Scheduled 2021-09-09 Screening for [facility] of Test 14:57:51 malignant neoplasm of Medici ne colon (procedure) [code = 847553502] Future Scheduled 2021-09-09 Screening for [facility] of Test 14:57:51 malignant neoplasm of Medici ne breast (procedure) [code = 053867383] Future Scheduled 2021-09-09 COVID-19 Vaccine (1) [facility] of Test 14:57:51 [code = COVID-19 Medicine Vaccine (1)] Future Scheduled 2021-09-09 TETANUS SHOT (ADULT) [facility] of Test 14:57:51 [code = TETANUS SHOT Medicin e (ADULT)] Future Scheduled 2021-09-09 Hepatitis C screening [facility] of Test 14:57:51 (procedure) [code = Medicine [id number]] Future Scheduled 2021-09-09 ZOSTER VACCINE (1 of [facility] of Test 14:57:51 2) [code = ZOSTER Medicine VACCINE (1 of 2)] Future Scheduled 2021-09-09 Screening for [facility] Test 14:57:51 osteoporosis Medicine (procedure) [code = [id number]] Future Scheduled 2021-09-09 Pneumococcal 65+ (1 of [facility] of Test 14:57:51 1 - PPSV23) [code = Medicine Pneumococcal 65+ (1 of 1 - PPSV23)] Future Scheduled 2021-09-09 MEDICARE AWV (Initial) [facility] of Test 14:57:51 [code = MEDICARE AWV Medicin e (Initial)] Future Scheduled 2021-09-09 FALL SCREEN [code = [employer] [facility] Test 14:57:51 FALL SCREEN] Medicine Future Scheduled COLON CANCER [facility] ege of Test SCREENING: COLONOSCOPY Medic ine [code = COLON CANCER SCREENING: COLONOSCOPY] Future Scheduled MAMMOGRAM ANNUAL [code [facility] of Test = MAMMOGRAM ANNUAL] Medicine Future Scheduled TETANUS SHOT (ADULT) [facility] of Test [code = TETANUS SHOT Medicin e (ADULT)] Future Scheduled HEPATITIS C SCREENING [facility] of Test [code = HEPATITIS C Medicine SCREENING] Future Scheduled ZOSTER VACCINE (1 of [facility] of Test 2) [code = ZOSTER Medicine VACCINE (1 of 2)] Future Scheduled FALL SCREEN [code = [facility] [employer] of [facility] FALL SCREEN] Medicine Future Scheduled OSTEOPOROSIS SCREENING [facility] [code = OSTEOPOROSIS Medicin e SCREENING] Future Scheduled PNEUMOVAX >=65 [facility] l[facility] of Test (PPSV23) [code = Medicine PNEUMOVAX >=65 (PPSV23)] Future Scheduled MEDICARE AWV (Initial) [facility] Test [code = MEDICARE AWV Medicin e (Initial)] Future Scheduled FLU VACCINE > 6 MONTHS [facility] Test [code = FLU VACCINE > Medici ne 6 MONTHS] Future Scheduled COLON CANCER [facility] ege of Test SCREENING: COLONOSCOPY Medic ine [code = COLON CANCER SCREENING: COLONOSCOPY] Future Scheduled MAMMOGRAM ANNUAL [code [facility] = MAMMOGRAM ANNUAL] Medicine Future Scheduled TETANUS SHOT (ADULT) [facility] of Test [code = TETANUS SHOT Medicin e (ADULT)] Future Scheduled HEPATITIS C SCREENING [facility] of Test [code = HEPATITIS C Medicine SCREENING] Future Scheduled ZOSTER VACCINE (1 of [facility] of Test 2) [code = ZOSTER Medicine VACCINE (1 of 2)] Future Scheduled FALL SCREEN [code = [facility] [employer] [facility] FALL SCREEN] Medicine Future Scheduled OSTEOPOROSIS SCREENING [facility] [code = OSTEOPOROSIS Medicin e SCREENING] Future Scheduled PNEUMOVAX >=65 [facility] of Test (PPSV23) [code = Medicine PNEUMOVAX >=65 (PPSV23)] Future Scheduled MEDICARE AWV (Initial) [facility] [code = MEDICARE AWV Medicin e (Initial)] Future Scheduled FLU VACCINE > 6 MONTHS [facility] Test [code = FLU VACCINE > Medici ne 6 MONTHS] Encounters Start End Encounter Admission Attending Care Care Encounter Source Date/Time Date/Time Type Type Clinicians Facility Department ID 2022-08-20 2022-08-20 Office POLI Lui [id number] [facility] 11:00:00 15:58:08 Visit Dejon S AMBULATOR [id number] College Y [id number] of [id number] Medi ramona 850 e 2022-01-15 2022-01-15 Office POLI Lui [id number] [facility] 11:00:00 12:56:48 Visit Dejon S AMBULATOR [id number] College Y [id number] of [id number] Medi ramona 850 e 2021-09-04 2021-09-04 Outpatient JUAN FELDER [facility] [id number] [facility] 13:45:06 16:03:15 Naveed hernandez of Medicin e 2021-09-04 2021-09-04 Office POLI Lui [id number] [facility] 11:30:00 12:45:25 Visit Dejon S AMBULATOR [id number] College Y [id number] of [id number] Medi ramona 850 e 2021-08-21 2021-08-21 Office POLI BILLINGS [id number] [facility] 09:18:41 16:33:27 Visit PARDEEP AMBULATOR [id number] College Y [id number] of [id number] Medi ramona 810 e 2020-07-10 2020-07-10 Office Bishop [facility] [id number] [facility] 10:54:17 12:06:06 Visit Dejon S AMBULATOR 350.1.13.21 College Y [id number] of [id number] Medi ramona 850 e 2020-06-25 2020-06-25 Office POLI Billings [id number] [facility] 13:00:23 16:01:40 Visit Pardeep M AMBULATOR 350.1.13.21 College Y 0.2.7.2.686 of [id number] [facility] ramona 810 e Results This patient has no known results.
[2022-09-22 18:17] LABS: Hematocrit 42.5 % (36.0-45.0); Lymphocytes % 18.1 % (15.3-44.8); MCV 95.1 fL (80-100); RBC Red Blood Cell Count 4.47 M/uL (3.86-4.86)
[2022-09-22] MEDS ORDERED: carvediloL 6.25 MG TAB ONE (18:24)
[2022-09-22] MEDS ORDERED: cloNIDine HCL 0.1 MG TAB ONE (18:24)
[2022-09-22 19:08] LABS: Troponin High Sensitivity 16.3 pg/mL (<58.9)
[2022-09-22 19:12] LABS: Potassium 3.9 mmol/L (3.5-5.1)
[2022-09-22] MEDS ORDERED: HYDRALAZINE HCL 20 MG/ML VIAL ONE (19:31)
--- NOTE | 2022-09-22 19:36 | ER ---
Nurse's Notes [facility] Name: Gavi Gutierrez Age: 76 yrs Sex: Female : 1945 Arrival Date: 09/22/2022 Time: 17:49 Bed 8 Private MD: Diagnosis: Hypertension Presentation: 09/22 17:49 Chief complaint: EMS states: pt came from [facility] stating, "I feel like I have mb9 high blood pressure." EMS states BP was 200/100 and that the pt has not taken her evening dose of Lisinopril and Carveidlol. Coronavirus screen: Vaccine status: Patient reports receiving the 2nd dose of the covid vaccine. Ebola Screen: No symptoms or risks identified at this time. Initial Sepsis Screen: Does the patient meet any 2 criteria? No. Patient's initial sepsis screen is negative. Does the patient have a suspected source of infection? No. Patient's initial sepsis screen is negative. Risk Assessment: Do you want to hurt yourself or someone else? Patient reports no desire to harm self or others. Onset of symptoms was September 22, 2022. 17:49 Method Of Arrival: EMS: [facility] mb9 17:49 Acuity: BROWN 2 mb9 Historical: - Allergies: 17:55 No Known Allergies; mb9 - PMHx: 17:55 bladder dysfunction; Hypertension; Dementia; progressive alzheimers; CAD; Major mb9 depressive disorder; Glaucoma; Anxiety; - Immunization history:: Adult Immunizations up to date. - Social history:: Smoking status: Patient denies any tobacco usage or history of. Screenin:57 [facility] ED Fall Risk Assessment (Adult) History of falling in the last 3 months, mb9 including since admission No falls in past 3 months (0 pts) Confusion or Disorientation Yes (5 pts) Intoxicated or Sedated No (0 pts) Impaired Gait No (0 pts) Mobility Assist Device Used Yes (1 pt) Altered Elimination No (0 pt) Score/Fall Risk Level 3 or more points = High Risk Oriented to surroundings, Maintained a safe environment, Educated pt \\T\\ family on fall prevention, incl call for assistance when getting out of bed. Abuse screen: Denies threats or abuse. Nutritional screening: No deficits noted. Tuberculosis screening: No symptoms or risk factors identified. Assessment: 18:00 General: Appears in no apparent distress. comfortable, Behavior is calm, cooperative, ld1 appropriate for age. Pain: Denies pain. Neuro: Level of Consciousness is awake, alert, obeys commands, Oriented to person, place, time, situation. Cardiovascular: Capillary refill < 3 seconds Patient's skin is warm and dry. Rhythm is sinus rhythm. Respiratory: Airway is patent Respiratory effort is even, unlabored. GI: Abdomen is flat, non-distended. : No signs and/or symptoms were reported regarding the genitourinary system. EENT: No signs and/or symptoms were reported regarding the EENT system. Derm: No signs and/or symptoms reported regarding the dermatologic system. Musculoskeletal: No signs and/or symptoms reported regarding the musculoskeletal system. 19:15 Reassessment: Patient appears in no apparent distress at this time. Patient and/or jb4 family updated on plan of care and expected duration. Pain level reassessed. Patient is alert, oriented x 3, equal unlabored respirations, skin warm/dry/pink. 19:45 Reassessment: Patient appears in no apparent distress at this time. Patient and/or jb4 family updated on plan of care and expected duration. Pain level reassessed. Patient is alert, oriented x 3, equal unlabored respirations, skin warm/dry/pink. Provider at the bedside explaining plan of care to pt and diagnoses, pt and family deny further questions or concerns, Pt ambulated out of ED with family with steady gait. Vital Signs: 17:53 BP 217 / 90; Pulse 70; Resp 18; Temp 98.4(O); Pulse Ox 100% on R/A; Weight 61.23 kg; mb9 Height 5 ft. 2 in. (157.48 cm); Pain 0/10; 18:00 BP 217 / 92; Pulse 67; Resp 16; Pulse Ox 99% on R/A; ld1 18:30 BP 212 / 92; Pulse 64; Resp 16; Pulse Ox 98% on R/A; ld1 18:55 BP 201 / 90; Pulse 62; Resp 18; Pulse Ox 98% on R/A; ld1 19:15 BP 183 / 80; Pulse 58; Resp 14; Pulse Ox 98% on R/A; jb4 19:33 BP 150 / 79; Pulse 58; Resp 11; Pulse Ox 97% on R/A; jb4 17:53 Body Mass Index 24.69 (61.23 kg, 157.48 cm) mb9 ED Course: 17:49 Patient arrived in ED. mb9 17:49 Arm band placed on. mb9 17:53 Triage completed. mb9 17:57 Placed in gown. Bed in low position. Call light in reach. Side rails up X 1. Client mb9 placed on continuous cardiac and pulse oximetry monitoring. NIBP monitoring applied. monitoring coordinator on. 17:59 Denise Mills, RN is Primary Nurse. ld1 18:00 No provider procedures requiring assistance completed. ld1 18:04 Maikol Knox PA is PHCP. cherry 18:04 Casey Kern MD is Attending Physician. cherry 18:05 Inserted saline lock: 20 gauge in right antecubital area, using aseptic technique. zm Blood collected. 19:45 IV discontinued, intact, bleeding controlled, No redness/swelling at site. Pressure jb4 dressing applied. Administered Medications: 18:23 Drug: cloNIDine 0.1 mg Route: PO; ld1 18:56 Follow up: Response: Blood sugar is unchanged ld1 18:24 Drug: carvedilol 6.25 mg Route: PO; ld1 18:56 Follow up: Response: Blood pressure is unchanged ld1 19:33 Not Given (Hemodynamic Parameters): hydrALAZINE 5 mg IVP once jb4 Medication: 17:57 VIS not applicable for this client. mb9 Outcome: 19:35 Discharge ordered by MD. [facility] 19:45 Discharged to home ambulatory, with family. jb4 19:45 Condition: stable 19:45 Discharge instructions given to patient, Instructed on discharge instructions, follow up and referral plans. Demonstrated understanding of instructions, follow-up care. 19:47 Patient left the ED. jb4 Signatures: Maikol Knox PA PA jmm Bryson, James, VINNIE RN jb4 Denise Mills, RN RN Wanda Forrest Mary Beth, RN RN mb9 Corrections: (The following items were deleted from the chart) 17:55 17:49 Chief complaint: EMS states: pt came from [facility] stating, "I feel like I mb9 have high blood pressure" mb9 17:58 17:49 Acuity: BROWN 3 mb9 mb9
--- NOTE | 2022-09-22 19:36 | EDPHYS ---
Physician Documentation [facility] Name: Gavi Gutierrez Age: 76 yrs Sex: Female : 1945 Arrival Date: 09/22/2022 Time: 17:49 Bed 8 Private MD: FAUSTINO Physician Casey Kern HPI: 09/22 19:57 This is a 76-year-old female with history of hypertension, dementia the presents [facility] emerged department with complaints of elevated blood pressure. Patient has no complaints of chest pain, headache, dizziness, abdominal pain, shortness of breath, etc.. 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 - Social history:: Smoking status: Patient denies any tobacco usage or history of. ROS: 19:57 Constitutional: Negative for fever, chills, and weight loss, Cardiovascular: Negative [facility] for chest pain, palpitations, and edema, Respiratory: Negative for shortness of breath, cough, wheezing, and pleuritic chest pain, Abdomen/GI: Negative for abdominal pain, nausea, vomiting, diarrhea, and constipation, Neuro: Negative for headache, weakness, numbness, tingling, and seizure. 19:57 All other systems are negative. Exam: 19:57 Constitutional: This is a well developed, well nourished patient who is awake, alert, jm and in no acute distress. Head/Face: atraumatic. Eyes: EOMI, no conjunctival erythema appreciated ENT: Moist Mucus Membranes Neck: Trachea midline, Supple Chest/axilla: Normal chest wall appearance and motion. Cardiovascular: Regular rate and rhythm. No edema appreciated Respiratory: Normal respirations, no respiratory distress appreciated Abdomen/GI: Non distended Back: Normal ROM Skin: General appearance color normal MS/ Extremity: Moves all extremities, no obvious deformities appreciated, no edema noted to the lower extremities Neuro: Awake and alert Psych: Behavior is normal, Mood is normal, Patient is cooperative and pleasant Vital Signs: 17:53 BP 217 / 90; Pulse 70; Resp 18; Temp 98.4(O); Pulse Ox 100% on R/A; Weight 61.23 kg; mb9 Height 5 ft. 2 in. (157.48 cm); Pain 0/10; 18:00 BP 217 / 92; Pulse 67; Resp 16; Pulse Ox 99% on R/A; ld1 18:30 BP 212 / 92; Pulse 64; Resp 16; Pulse Ox 98% on R/A; ld1 18:55 BP 201 / 90; Pulse 62; Resp 18; Pulse Ox 98% on R/A; ld1 19:15 BP 183 / 80; Pulse 58; Resp 14; Pulse Ox 98% on R/A; jb4 19:33 BP 150 / 79; Pulse 58; Resp 11; Pulse Ox 97% on R/A; jb4 17:53 Body Mass Index 24.69 (61.23 kg, 157.48 cm) mb9 MDM: 18:11 Patient medically screened. [facility] 19:33 Data reviewed: vital signs, nurses notes. Counseling: I had a detailed discussion with cherry the patient and/or guardian regarding: the historical points, exam findings, and any diagnostic results supporting the discharge/admit diagnosis, the need for outpatient follow up, to return to the emergency department if symptoms worsen or persist or if there are any questions or concerns that arise at home. 19:58 ED course: Labs unremarkable. Patient and daughter advised follow-up PCP for drug m titration. Otherwise given strict return precautions. Family understood and agrees plan of care.. 09/22 18:05 Order name: Basic Metabolic Panel; Complete Time: 19:17 [facility] 09/22 18:05 Order name: CBC with Diff; Complete Time: 18:38 [facility] 09/22 18:05 Order name: Troponin HS; Complete Time: 19:17 [facility] 09/22 18:05 Order name: EKG; Complete Time: 18:05 [facility] 09/22 18:05 Order name: Cardiac monitoring; Complete Time: 18:06 [facility] 09/22 18:05 Order name: EKG - Nurse/Tech; Complete Time: 18:19 [facility] 09/22 18:05 Order name: IV Saline Lock; Complete Time: 18:05 [facility] 09/22 18:05 Order name: Labs collected and sent; Complete Time: 18:05 [facility] 09/22 18:05 Order name: O2 Per Protocol; Complete Time: 18:05 [facility] 09/22 18:05 Order name: O2 Sat Monitoring; Complete Time: 18:05 [facility] 09/22 18:20 Order name: Labs - recollect needed: recollect light green top; Complete Time: 18:34 bd Administered Medications: 18:23 Drug: cloNIDine 0.1 mg Route: PO; ld1 18:56 Follow up: Response: Blood sugar is unchanged ld1 18:24 Drug: carvedilol 6.25 mg Route: PO; ld1 18:56 Follow up: Response: Blood pressure is unchanged ld1 19:33 Not Given (Hemodynamic Parameters): hydrALAZINE 5 mg IVP once jb4 Disposition Summary: 09/22/22 19:35 Discharge Ordered Location: Home [facility] Condition: Stable [facility] Diagnosis - Hypertension [facility] Followup: [facility] - With: Private Physician - When: 2 - 3 days - Reason: Recheck today's complaints, Continuance of care, Re-evaluation by your physician Discharge Instructions: - Discharge Summary Sheet jm - Hypertension, Adult jm Forms: - Medication Reconciliation Form [facility] - Thank You Letter [facility] - Antibiotic Education [facility] - Prescription Opioid Use [facility] Signatures: Dispatcher [employer] EDValerie Amaya Joel, PA PA m Denise Mills RN RN ld1 Viktoriya Lundy RN RN mb9 Per Sheikh RN jb4
[2022-09-22 20:24] VITALS: TEMP 98.4
[2022-09-22 20:30] VITALS: BP 150/79; O2SAT 97
--- NOTE | 2022-09-23 15:22 | EKG ---
Test Date: 2022-09-22 Test Time: 18:17:23 [employer] Crew Chief: LYLA MEASUREMENT RESULTS: Intervals: Rate: 63 HI: 124 QRSD: 130 QT: 480 QTc: 491 Mcloud: P: 69 HI: 124 QRS: 87 T: 77 INTERPRETIVE STATEMENTS: Normal sinus rhythm Nonspecific intraventricular block Abnormal ECG Compared to ECG 04/24/2019 20:51:38 No significant changes Electronically Signed On 09-23-22 15:20:38 [employer] by Jared Jessica
== END 2022-09-22 19:47 | disposition home or self-care (01) ==
LOC: ER 17:36
DX: I10 Essential (primary) hypertension (principal); G30.9 Alzheimer's disease, unspecified; F02.80 Dementia in other diseases classified elsewhere, unspecified severity, without behavioral disturbance, psychotic disturbance, mood disturbance, and anxiety
CPT/HCPCS: 36415; 80048; 84484; 85025; 93005; 99284; J0360

== ENCOUNTER 2023-05-26 10:43 | Inpatient (IN) | payer OTHER, MEDICARE ==
--- OUTSIDE RECORDS SUMMARY | 2023-05-26 10:46 | XMS REPORT | Continuity of Care Document ---
:1945 Author Organization [facility] t Address [address] [place] [address] Care Team Providers Name Role Phone Talon Au MD Primary Care Physician Problems This patient has no known problems. Allergies, Adverse Reactions, Alerts This patient has no known allergies or adverse reactions. Social History Social Habit Start Date Stop Date Quantity Comments Source Gender identity [facility] Sexual orientation Method [facility] Sex Assigned At [birth year] Met [facility] 00:00:00 00:00:00 Smoking Status Start Date Stop Date Source Tobacco smoking consumption unknown [facility] Medications This patient has no known medications. Procedures This patient has no known procedures. Plan of Care Planned Activity Planned Date Details Comments Source Future Scheduled 2023-05-23 COVID-19 VACCINE (#1) [facility] Test 00:34:57 [code = COVID-19 VACCINE (#1)] Future Scheduled 2023-05-23 SHINGLES VACCINES (1 Met [facility] Test 00:34:57 of 2) [code = SHINGLES VACCINES (1 of 2)] Future Scheduled 2023-05-23 65+ PNEUMOCOCCAL [facility] Test 00:34:57 VACCINE (1 - PCV) [code = 65+ PNEUMOCOCCAL VACCINE (1 - PCV)] Future Scheduled 2023-05-23 INFLUENZA VACCINE (#1) [facility] Test 00:34:57 [code = INFLUENZA VACCINE (#1)] Future Scheduled 2022-09-02 COVID-19 VACCINE (#1) [facility] Test 23:33:20 [code = COVID-19 VACCINE (#1)] Future Scheduled 2022-09-02 BREAST CANCER [facility] Test 23:33:20 SCREENING [code = BREAST CANCER SCREENING] Future Scheduled 2022-09-02 COLONOSCOPY SCREENING [facility] Test 23:33:20 [code = COLONOSCOPY SCREENING] Future Scheduled 2022-09-02 SHINGLES VACCINES (1 Met [facility] Test 23:33:20 of 2) [code = SHINGLES VACCINES (1 of 2)] Future Scheduled 2022-09-02 65+ [facility] 23:33:20 VACCINE (1 - PCV) [code = 65+ PNEUMOCOCCAL VACCINE (1 - PCV)] Future Scheduled 2022-09-02 INFLUENZA VACCINE Method [facility] Test 23:33:20 [code = INFLUENZA VACCINE] Future Scheduled 2022-05-19 BREAST CANCER [facility] Test 19:49:13 SCREENING [code = BREAST CANCER SCREENING] Future Scheduled 2022-05-19 COLONOSCOPY SCREENING [facility] Test 19:49:13 [code = COLONOSCOPY SCREENING] Future Scheduled 2022-05-19 SHINGLES VACCINES (1 Met [facility] Test 19:49:13 of 2) [code = SHINGLES VACCINES (1 of 2)] Future Scheduled 2022-05-19 65+ [facility] 19:49:13 VACCINE (1 - PCV) [code = 65+ PNEUMOCOCCAL VACCINE (1 - PCV)] Future Scheduled 2022-05-19 INFLUENZA VACCINE [facility] Test 19:49:13 [code = INFLUENZA VACCINE] Future Scheduled 2022-05-19 HEPATITIS B VACCINES Met [facility] Test 19:49:13 (1 of 3 - 3-dose series) [code = HEPATITIS B VACCINES (1 of 3 - 3-dose series)] Future Scheduled 2022-05-19 COVID-19 VACCINE (#1) [facility] Test 19:49:13 [code = COVID-19 VACCINE (#1)] Results This patient has no known results.
[2023-05-26 11:10] LABS: Absolute Lymphocytes (CBC) 1.9 K/uL (0.7-4.9); Hematocrit 40.3 % (36.0-45.0); MCV 96.7 fL (80-100); MPV 6.9 fL (7.6-11.3); Platelets 184 thou/uL (152-406); RBC Red Blood Cell Count 4.16 M/uL (3.86-4.86)
[2023-05-26 11:33] LABS: Potassium 2.8 mEq/L (3.5-5.1); Troponin High Sensitivity 13.5 pg/mL (<58.9)
--- NOTE | 2023-05-26 11:38 | RAD REPORT ---
EXAM DESCRIPTION: CT - Head C Spine Mpr Wo Con - 05/26/2023 11:13 am CLINICAL HISTORY: Head and neck injury status post fall. Head and neck pain COMPARISON: 2019 MRI brain TECHNIQUE: Computed axial tomography of the head and cervical spine was obtained. Sagittal and coronal reconstruction was performed. All CT scans are performed using dose optimization technique as appropriate and may include automated exposure control or mA/KV adjustment according to patient size. FINDINGS: An intracranial bleed is not seen. The ventricles are normal in caliber. No significant hypodensity within the brain. An extra-axial fluid collection is not noted. Fluid within the visualized sinuses and mastoids is not seen A cervical fracture is not visualized. No dislocation is noted. IMPRESSION: No acute intracranial abnormality is seen. A cervical fracture is not visualized. If the patient continues to have symptoms to suggest intracranial /spinal cord pathology then MRI wou ld be recommended
--- NOTE | 2023-05-26 12:18 | ER ---
Nurse's Notes [facility] Name: Gavi Gutierrez Age: 77 yrs Sex: Female : 1945 Arrival Date: 05/26/2023 Time: 10:43 Bed 2 Private MD: Diagnosis: Acute kidney injury, fall from correction, hypokalemia Presentation: 05/26 10:49 Chief complaint: EMS states: "toned out for unwitnessed fall at [facility]. Pt found mb9 on ground and denies pain. Pt on Aspirin 81mg. On scene pt was hypotensive, 80s/60s manual. 22 g left AC and administered 1 liter of 0.9 % NS. BGL 122.". Coronavirus screen: Vaccine status: Patient reports receiving the 2nd dose of the covid vaccine. Ebola Screen: No symptoms or risks identified at this time. Initial Sepsis Screen: Does the patient meet any 2 criteria? No. Patient's initial sepsis screen is negative. Does the patient have a suspected source of infection? No. Patient's initial sepsis screen is negative. Risk Assessment: Do you want to hurt yourself or someone else? Patient reports no desire to harm self or others. Onset of symptoms was May 26, 2023. 10:49 Method Of Arrival: EMS: [facility] mb9 10:49 Acuity: BROWN 2 mb9 Triage Assessment: 10:52 General: Appears in no apparent distress. Behavior is calm, cooperative. Pain: Denies mb9 pain. Neuro: Marroquin Agitation-Sedation Scale (RASS): 0 - Alert and Calm Level of Consciousness is awake, alert, obeys commands, Oriented to person, place, situation. Neuro: Pupils are PERRLA, Cardiovascular: Heart tones S1 S2 present Patient's skin is warm and dry. Cardiovascular: Rhythm is sinus bradycardia. Respiratory: Airway is patent Respiratory effort is even, unlabored, Respiratory pattern is regular, symmetrical, Breath sounds are clear bilaterally. GI: Abdomen is round non-distended, Bowel sounds present X 4 quads. Abd is soft and non tender X 4 quads. : No signs and/or symptoms were reported regarding the genitourinary system. Derm: Skin is pink, warm \\T\\ dry. Musculoskeletal: Range of motion: intact in all extremities. Historical: - Allergies: 10:49 Sulfa (Sulfonamide Antibiotics); mb9 - Home Meds: 10:55 aspirin 81 mg Oral chew 1 tab once daily [Active]; carvedilol 6.25 mg Oral tab 1 tab 2 mb9 times per day [Active]; levetiracetam 250 mg Oral tab 1 tabs 2 times per day [Active]; donepezil 10 mg Oral tab 1 tab once daily [Active]; diazepam 5 mg Oral tab 1 tab 2 times per day [Active]; memantine 10 mg Oral tab 1 tab 2 times per day [Active]; bupropion HCl 150 mg Oral TbER 1 tab 2 times per day [Active]; - PMHx: 10:49 Anxiety; bladder dysfunction; CAD; Dementia; Glaucoma; Hypertension; Major Depressive mb9 Disorder; progressive alzheimers; - Immunization history:: Adult Immunizations up to date. - Social history:: Smoking status: Patient denies any tobacco usage or history of. Screenin:54 [facility] ED Fall Risk Assessment (Adult) History of falling in the last 3 months, mb9 including since admission Yes- fall prone (multiple falls) (3 pts) Confusion or Disorientation Yes (5 pts) Intoxicated or Sedated No (0 pts) Impaired Gait No (0 pts) Mobility Assist Device Used No (0 pt) Altered Elimination No (0 pt) Score/Fall Risk Level 0 - 2 = Low Risk Oriented to surroundings, Maintained a safe environment, Educated pt \\T\\ family on fall prevention, incl call for assistance when getting out of bed. Abuse screen: Denies threats or abuse. Nutritional screening: No deficits noted. Tuberculosis screening: No symptoms or risk factors identified. Assessment: 10:54 Reassessment: see triage assessment. mb9 11:07 Reassessment: pt taken to CT via stretcher. mb9 12:44 Reassessment: No changes from previously documented assessment. Patient and/or family mb9 updated on plan of care and expected duration. Pain level reassessed. Patient is alert, oriented x 3, equal unlabored respirations, skin warm/dry/pink. 13:45 Reassessment: No changes from previously documented assessment. Patient and/or family mb9 updated on plan of care and expected duration. Pain level reassessed. Patient is alert, oriented x 3, equal unlabored respirations, skin warm/dry/pink. 14:45 Reassessment: No changes from previously documented assessment. Patient and/or family mb9 updated on plan of care and expected duration. Pain level reassessed. Patient is alert, oriented x 3, equal unlabored respirations, skin warm/dry/pink. 15:45 Reassessment: No changes from previously documented assessment. Patient and/or family mb9 updated on plan of care and expected duration. Pain level reassessed. Patient is alert, oriented x 3, equal unlabored respirations, skin warm/dry/pink. 16:45 Reassessment: No changes from previously documented assessment. Patient and/or family mb9 updated on plan of care and expected duration. Pain level reassessed. Patient is alert, oriented x 3, equal unlabored respirations, skin warm/dry/pink. 16:45 Reassessment: See [facility] for further charting. mb9 Vital Signs: 10:49 BP 135 / 60; Pulse 54; Resp 17; Temp 97.6(O); Pulse Ox 98% on R/A; Weight 70.31 kg; mb9 Height 5 ft. 5 in. ; Pain 0/10; 12:44 BP 134 / 63; Pulse 56; Resp 18; Pulse Ox 98% on R/A; mb9 13:45 BP 129 / 79; Pulse 60; Resp 16; Pulse Ox 100% ; mb9 15:20 BP 110 / 66; Pulse 55; Resp 16; Pulse Ox 98% on R/A; mb9 10:49 Body Mass Index 25.79 (70.31 kg, 165.1 cm) mb9 10:49 Pain Scale: Adult mb9 ED Course: 10:47 Patient arrived in ED. bd 10:49 Joanna Richards MD is Attending Physician. sp3 10:49 Viktoriya Lundy RN is Primary Nurse. mb9 10:49 Arm band placed on. mb9 10:52 Triage completed. mb9 10:54 Placed in gown. Bed in low position. Call light in reach. Side rails up X 1. Client mb9 placed on continuous cardiac and pulse oximetry monitoring. NIBP monitoring applied. sales representative livestock on. 10:59 No provider procedures requiring assistance completed. Maintain EMS IV. Dressing mb9 intact. Good blood return noted. Site clean \\T\\ dry. Gauge \\T\\ site: 22g left AC. 11:11 CT Head C Spine In Process Unspecified. EDMS 12:17 Henriquez, Mohammad, MD is Hospitalizing Provider. sp3 Administered Medications: 12:59 Drug: Potassium Chloride PO 40 mEq Route: PO; mb9 15:15 Follow up: Response: No adverse reaction mb9 17:39 Drug: NS IV 0.45 % 1000 ml Route: IV; Rate: 75 ml/hr; Site: left antecubital; mb9 Medication: 11:13 VIS not applicable for this client. mb9 Outcome: 12:18 Decision to Hospitalize by Provider. sp3 21:02 Patient left the ED. as6 Signatures: Dispatcher [employer] EDMS Valerie Peralta Setul, MD MD sp3 Sarthak Chu RN RN as6 Viktoriya Lundy RN RN mb9 Corrections: (The following items were deleted from the chart) 10:54 10:49 Chief complaint: EMS states: "toned out for unwitnessed fall at [facility]. Pt mb9 found on ground and denies pain. On scene pt was hypotensive, 80s/60s manual. 22 g left AC and administered 1 liter of 0.9 % NS. BGL 122." mb9
--- NOTE | 2023-05-26 12:18 | EDPHYS ---
Physician Documentation [facility] Name: Gavi Gutierrez Age: 77 yrs Sex: Female : 1945 Arrival Date: 05/26/2023 Time: 10:43 Bed 2 Private MD: ED Physician Joanna Richards HPI: 05/26 11:33 This 77 yrs old Female presents to ER via EMS with complaints of Fall from retirement.sp3 11:33 77-year-old female with a history of dementia, hypertension, CAD, anxiety, glaucoma now sp3 presents via EMS from retirement after she sustained a fall. Patient was found on the ground but in no acute distress. Mild hypotension noted on scene by carriage and of a systolic blood pressure of 90 which prompted calling EMS. EMS arrived to find patient in no acute distress with normal vital signs and transported her here. No signs of injury per their report. No bleeding on site. Patient complains of nothing currently and states she feels fine. She does not recall falling. Unknown whether she had any sort of prodrome including syncope or chest pain though currently she has no symptoms. Patient also has epileptic history and is on Keppra. History and physical and ROS limited secondary to dementia.. Historical: - Allergies: 10:49 Sulfa (Sulfonamide Antibiotics); mb9 - Home Meds: 10:55 aspirin 81 mg Oral chew 1 tab once daily [Active]; carvedilol 6.25 mg Oral tab 1 tab 2 mb9 times per day [Active]; levetiracetam 250 mg Oral tab 1 tabs 2 times per day [Active]; donepezil 10 mg Oral tab 1 tab once daily [Active]; diazepam 5 mg Oral tab 1 tab 2 times per day [Active]; memantine 10 mg Oral tab 1 tab 2 times per day [Active]; bupropion HCl 150 mg Oral TbER 1 tab 2 times per day [Active]; - PMHx: 10:49 Anxiety; bladder dysfunction; CAD; Dementia; Glaucoma; Hypertension; Major Depressive mb9 Disorder; progressive alzheimers; - Immunization history:: Adult Immunizations up to date. - Social history:: Smoking status: Patient denies any tobacco usage or history of. ROS: 11:34 Constitutional: Negative for fever, chills, and weight loss, Eyes: Negative for injury, sp3 pain, redness, and discharge, Neck: Negative for injury, pain, and swelling, Cardiovascular: Negative for chest pain, palpitations, and edema, Respiratory: Negative for shortness of breath, cough, wheezing, and pleuritic chest pain, Abdomen/GI: Negative for abdominal pain, nausea, vomiting, diarrhea, and constipation, MS/Extremity: Negative for injury and deformity, Skin: Negative for injury, rash, and discoloration, Neuro: Negative for headache, weakness, numbness, tingling, and seizure. 11:34 All other systems are negative. Exam: 11:34 Constitutional: This is a well developed, well nourished patient who is awake, alert, sp3 and in no acute distress. Head/Face: Normocephalic, atraumatic. Eyes: Pupils equal round and reactive to light, extra-ocular motions intact. Lids and lashes normal. Conjunctiva and sclera are non-icteric and not injected. Cornea within normal limits. Periorbital areas with no swelling, redness, or edema. ENT: Nares patent. No nasal discharge, no septal abnormalities noted. External auditory canals are clear. Oropharynx with no redness, swelling, or masses, exudates, or evidence of obstruction, uvula midline. Mucous membranes moist. Neck: Trachea midline, no thyromegaly or masses palpated, and no cervical lymphadenopathy. Supple, full range of motion without nuchal rigidity, or vertebral point tenderness. No Meningismus. Chest/axilla: Normal chest wall appearance and motion. Nontender with no deformity. No lesions are appreciated. Cardiovascular: Regular rate and rhythm with a normal S1 and S2. No gallops, murmurs, or rubs. Normal PMI, no JVD. No pulse deficits. Respiratory: Lungs have equal breath sounds bilaterally, clear to auscultation and percussion. No rales, rhonchi or wheezes noted. No increased work of breathing, no retractions or nasal flaring. Abdomen/GI: Soft, non-tender, with normal bowel sounds. No distension or tympany. No guarding or rebound. No evidence of tenderness throughout. Back: No spinal tenderness. No costovertebral tenderness. Full range of motion. Skin: Warm, dry with normal turgor. Normal color with no rashes, no lesions, and no evidence of cellulitis. MS/ Extremity: Pulses equal, no cyanosis. Neurovascular intact. Full, normal range of motion. Neuro: Awake and alert, GCS 15, oriented to person, place, time, and situation. Cranial nerves II-XII grossly intact. Motor strength 5/5 in all extremities. Sensory grossly intact. Cerebellar exam normal. Normal gait. Psych: Awake, alert, with orientation to person, place and time. Behavior, mood, and affect are within normal limits. 11:34 ECG was reviewed by the Attending Physician. EKG demonstrated sinus bradycardia 55 bpm with normal intervals, normal QRS, normal axis, normal ST/T-segment's without evidence of acute ischemia. Vital Signs: 10:49 BP 135 / 60; Pulse 54; Resp 17; Temp 97.6(O); Pulse Ox 98% on R/A; Weight 70.31 kg; mb9 Height 5 ft. 5 in. ; Pain 0/10; 12:44 BP 134 / 63; Pulse 56; Resp 18; Pulse Ox 98% on R/A; mb9 13:45 BP 129 / 79; Pulse 60; Resp 16; Pulse Ox 100% ; mb9 15:20 BP 110 / 66; Pulse 55; Resp 16; Pulse Ox 98% on R/A; mb9 10:49 Body Mass Index 25.79 (70.31 kg, 165.1 cm) mb9 10:49 Pain Scale: Adult mb9 MDM: 10:56 Patient medically screened. sp3 11:35 Data reviewed: vital signs, nurses notes, EMS record, old medical records, lab test sp3 result(s), EKG, radiologic studies. ED course: 77-year-old female with probable mechanical fall found down at retirement. We will obtain CT scan of the head and C-spine, laboratory values and EKG. Unknown if medical etiology behind her falling. Currently patient is alert and in no acute distress. Neurological exam is normal other than her orientation. This is at her baseline based on chart review. If work-up is negative, we will safely discharge patient home. I am not highly suspicious for CVA, sepsis, shock, significant trauma, cardiac event, or any other critical findings at this time.. 12:16 ED course: Patient is threefold increase in creatinine with hypokalemia and unknown sp3 primary etiology of her fall. We will admit patient for observation and nephrology consult as needed.. 05/26 10:57 Order name: Basic Metabolic Panel; Complete Time: 11:40 sp3 05/26 10:57 Order name: CBC with Diff; Complete Time: 11:40 sp3 05/26 10:57 Order name: Troponin HS; Complete Time: 11:40 sp3 05/26 10:57 Order name: CT Head C Spine; Complete Time: 11:40 sp3 05/26 10:57 Order name: EKG; Complete Time: 10:58 sp3 05/26 12:44 Order name: CONS Physician Consult [facility] 05/26 16:30 Order name: Diet Heart Healthy; Complete Time: 16:31 aa5 05/26 10:57 Order name: Cardiac monitoring; Complete Time: 10:59 sp3 05/26 10:57 Order name: EKG - Nurse/Tech; Complete Time: 10:59 sp3 05/26 10:57 Order name: IV Saline Lock; Complete Time: 10:59 sp3 05/26 10:57 Order name: Labs collected and sent; Complete Time: 10:59 sp3 05/26 10:57 Order name: O2 Sat Monitoring; Complete Time: 10:59 sp3 Administered Medications: 12:59 Drug: Potassium Chloride PO 40 mEq Route: PO; mb9 15:15 Follow up: Response: No adverse reaction mb9 17:39 Drug: NS IV 0.45 % 1000 ml Route: IV; Rate: 75 ml/hr; Site: left antecubital; mb9 Disposition Summary: 05/26/23 12:18 Hospitalization Ordered Hospitalization Status: Observation sp3 Provider: Luma Henriquez sp3 Condition: Stable sp3 Problem: an acute exacerbation sp3 Symptoms: have worsened sp3 Bed/Room Type: Standard sp3 Location: Telemetry/MedSurg (Inpatient)(05/26/23 20:04) mw Room Assignment: 424(05/26/23 20:04) Diagnosis - Acute kidney injury, fall from retirement, hypokalemia sp3 Forms: - Medication Reconciliation Form sp3 - SBAR form sp3 - Leadership Thank You Letter sp3 Signatures: Dispatcher [employer] EDMO Marium Esquivel RN RN mw Williams, Irene, RN RN iw Prokisch, Amanda, RN RN ap3 Joanna Richards MD MD sp3 Breneman, Desiree, RN RN mb9 Corrections: (The following items were deleted from the chart) 11:35 11:33 77-year-old female with a history of dementia, hypertension, CAD, anxiety, sp3 glaucoma now presents via EMS from retirement after she sustained a fall. Patient was found on the ground but in no acute distress. Mild hypotension noted on scene by carriage and of a systolic blood pressure of 90 which prompted calling EMS. EMS arrived to find patient in no acute distress with normal vital signs and transported her here. No signs of injury per their report. No bleeding on site. Patient complains of nothing currently and states she feels fine. She does not recall falling. Unknown whether she had any sort of prodrome including syncope or chest pain though currently she has no symptoms.. sp3 12:45 12:33 Potassium ordered. EDMS EDMS 18:47 12:18 Telemetry/MedSurg (observation) sp3 ap3 18:47 12:18 sp3 ap3 20:04 18:47 [facility] ER HOLD ap3 mw 20:04 18:47 ERHOLD- ap3 mw
[2023-05-26] MEDS ORDERED: POTASSIUM CL 40 MEQ in NA CHLORIDE 0.9% 500 ML IV SCH (13:00)
[2023-05-26] MEDS ORDERED: POTASSIUM CL SA 10 MEQ TAB PO ONE (13:06)
[2023-05-26 15:57] VITALS: BMI 25.7
[2023-05-26] MEDS ORDERED: NACHLORIDE 0.45% 1,000 ML IV ONE (17:43)
--- NOTE | 2023-05-26 18:04 | P.HP ---
Certification for Inpatient With expected LOS: <2 Midnights Patient will require the following post-hospital care: None Practitioner: I am a practitioner with admitting privileges, knowledge of patient current condition, hospital course, and medical plan of care. Services: Services provided to patient in accordance with Admission requirements found in Title 42 Section 412.3 of the Code of Federal Regulations Patient History Date of Service: 05/26/23 History of Present Illness: 77-year-old female was brought by the ambulance. EMS reports that the patient had a unwitnessed fall at [employer]. Patient has history of anxiety bladder dysfunction, CAD, dementia, glaucoma, hypertension, major depressive disorder, progressive Alzheimer's disease. On admission patient was patient's sister at bedside reports that patient lives in the assisted living. Patient is awake not in any distress answering questions appropriately obeying commands oriented to person place and situation and sinus bradycardia heart rate 50s breathing is regular breath sounds clear. Lab work free report significant for serum potassium 2.8 BUN 64 creatinine 3.23 and GFR of 14. CT head C-spine without contrast done no acute intracranial abnormality seen, no cervical fractures seen. Allergies Sulfa (Sulfonamide Antibiotics) Allergy (Unknown, Verified 05/26/18 11:14) Hives Home Medications: Ascorbic Acid [Vitamin C] 1 tab PO DAILY 10/24/18 Aspirin [Aspirin EC 81 MG] 81 mg PO DAILY 10/24/18 Calcium Carb, Citrate/Vit D3 [Citracal + D ER Tablet] 2 each PO BID 10/24/18 D-Methorphan Hb/Prometh HCl [Promethazine-Dm Syrup] 5 ml PO QID PRN 10/24/18 Diazepam [Valium] 1 tab PO BID PRN 10/24/18 Donepezil HCl 1 tab PO DAILY 10/24/18 Latanoprost/Pf [Latanoprost 0.005% Eye Drop] 1 drop LEFT EYE BEDTIME 10/24/18 Melatonin [Melatonin*] 3 mg PO BEDTIME 10/24/18 Phenylephrine HCl/Acetaminophn [Mapap Sinus Caplet] 2 tab PO Q4H PRN 10/24/18 Ubidecarenone [Coenzyme Q-10] 100 mg PO DAILY 10/24/18 Vit C/E/Zn/Coppr/Lutein/Zeaxan [Preservision Areds 2 Softgel] 1 cap PO BID 10/24/18 Vitamin E 1 cap PO DAILY 10/24/18 buPROPion HCl [Zyban] 150 mg PO BID 10/24/18 carvediloL [Carvedilol] 6.25 mg PO BID 10/24/18 lisinopriL [Prinivil*] 1 tab PO DAILY 10/24/18 levETIRAcetam [Keppra*] 250 mg PO BID #60 tab 10/25/18 - Past Medical/Surgical History Diabetic: No -: dementia -: CAD -: HTN -: Bladder dyfunction -: Alzheimers -: hysterectomy -: cholecystectomy - Social History Smoking Status: Never smoker Alcohol use: No CD- Drugs: No Caffeine use: Yes Review of Systems 10-point ROS is otherwise unremarkable General: Unremarkable Eyes: Unremarkable ENT: Unremarkable Physical Examination - Vital Signs Temperature: 97.6 F Blood Pressure: 130/80 Pulse: 55 Respirations: 18 Pulse Ox (%): 100 - Physical Exam General: Alert HEENT: Atraumatic, PERRLA Neck: 2+ carotid pulse no bruit Respiratory: Clear to auscultation bilaterally Cardiovascular: No edema Capillary refill: <2 Seconds Gastrointestinal: Normal bowel sounds Musculoskeletal: No clubbing Integumentary: No rashes Urinary: Other (dysfunction) - Studies Laboratory Data (last 24 hrs) 05/26/23 05/26/23 11:05 11:05 WBC 7.20 Hgb 13.7 Hct 40.3 Plt Count 184 Sodium 136 Potassium 2.8 L BUN 64 H Creatinine 3.23 H Glucose 105 Assessment and Plan - Plan Assessment and plan Fall anxiety bladder dysfunction, CAD, dementia, glaucoma, hypertension, major depressive disorder, progressive Alzheimer's disease. Assessment and plan Fall -EMS reports that the patient had a unwitnessed fall [place] [employer] [facility]. Patient denies pain or discomfort -CT head C-spine without contrast done no acute intracranial abnormality seen, no cervical fractures seen. Hypokalemia: Acute kidney injury - Lab work free report significant for serum potassium 2.8 BUN 64 creatinine 3.23 and GFR of 14. -Refer to nephrology -Potassium 40 mEq IV piggyback ordered -We will recheck the potassium and replace as needed hypertension -Chronic controlled. Continue the current medical anxiety bladder dysfunction, CAD, dementia, glaucoma, major depressive disorder, progressive Alzheimer's disease. -Chronic controlled. Continue to currently home medications Nine 77-year-old female was brought by the ambulance. EMS reports that the patient had a unwitnessed fall [place] [employer] [facility]. Patient has history of anxiety bladder dysfunction, CAD, dementia, glaucoma, hypertension, major depressive dis order, progressive Alzheimer's disease. On admission patient was patient's sister at bedside reports that patient lives in the assisted living. Patient is awake not in any distress answering questions appropriately obeying commands oriented to person place and situation and sinus bradycardia heart rate 50s breathing is regular breath sounds clear. Lab work free report significant for serum hypertension, CT head C-spine without contrast done no acute intracranial abnormality seen, no cervical fractures seen. Full code DVT prophylaxis ordered - Advance Directives Does patient have a Living Will: No Does patient have a Durable POA for Healthcare: No - Code Status/Comfort Care Code Status Assessed: Yes (full code) Code Status: Full Code
[2023-05-26 21:10] VITALS: O2SAT 98
--- NOTE | 2023-05-26 21:31 | P.HP ---
Certification for Inpatient Patient admitted to: Inpatient With expected LOS: >2 Midnights Practitioner: I am a practitioner with admitting privileges, knowledge of patient current condition, hospital course, and medical plan of care. Services: Services provided to patient in accordance with Admission requirements found in Title 42 Section 412.3 of the Code of Federal Regulations Patient History Date of Service: 05/26/23 Reason for admission: FOUND ON THE FLOOR AT ASSISTED LIVING History of Present Illness: HUGO HAS SEVERE ALZ DISEASE MANAGED BY DOCTORS IN [place]. SHE WAS FOUND ON THE FLOOR AND BROUGHT TO ER. SHE IS NOT ABLE TO GIVE ANY HISTORY SHE IS AT BASLINE AWAKE BUT TOTALLY DISORIENTED. SHE IS FOUNG TO HAVE K OF 2.8 AND ELEVATED BUN AND CREATININE. Allergies Sulfa (Sulfonamide Antibiotics) Allergy (Unknown, Verified 05/26/18 11:14) Hives Home medications list reviewed: Yes Home Medications: Aspirin [Aspirin EC 81 MG] 81 mg PO DAILY 10/24/18 Diazepam [Valium] 1 tab PO BID PRN 10/24/18 Donepezil HCl 1 tab PO DAILY 10/24/18 buPROPion HCl [Zyban] 150 mg PO BID 10/24/18 carvediloL [Carvedilol] 6.25 mg PO BID 10/24/18 levETIRAcetam [Keppra*] 250 mg PO BID #60 tab 10/25/18 Memantine HCl 1 tab PO BID 05/26/23 - Past Medical/Surgical History Diabetic: No -: dementia -: CAD -: HTN -: Bladder dyfunction -: Alzheimers -: hysterectomy -: cholecystectomy - Social History Smoking Status: Never smoker Alcohol use: No CD- Drugs: No Caffeine use: Yes Review of Systems is unable to be obtained Physical Examination - Vital Signs Temperature: 98.2 F Blood Pressure: 152/77 Pulse: 61 Respirations: 13 Pulse Ox (%): 98 - Physical Exam General: Cooperative, Confused, Other (DEHYDRATED CLINICALLY.) HEENT: Atraumatic, PERRLA, Mucous membr. moist/pink, EOMI, Sclerae nonicteric Neck: Supple, 2+ carotid pulse no bruit, No LAD, Without JVD or thyroid abnormality Respiratory: Clear to auscultation bilaterally, Normal air movement Cardiovascular: Regular rate/rhythm, Normal S1 S2 Gastrointestinal: Normal bowel sounds, No tenderness Musculoskeletal: No tenderness Integumentary: No rashes Neurological: Normal gait, Normal speech, Normal strength at 5/5 x4 extr, Normal tone, Normal affect Lymphatics: No axilla or inguinal lymphadenopathy - Studies Laboratory Data (last 24 hrs) 05/26/23 05/26/23 11:05 11:05 WBC 7.20 Hgb 13.7 Hct 40.3 Plt Count 184 Sodium 136 Potassium 2.8 L BUN 64 H Creatinine 3.23 H Glucose 105 Assessment and Plan - Problems (Diagnosis) (1) Acute renal insufficiency Current Visit: Yes Status: Acute Plan: CLINICALLY SHE SEEMS DEHYDRATED. I ASKED ER DOCTOR ZEINA TO START ON IV FLUIDS. REASON HAS NOT BEEN EVALUATED I ORDERED UA AND CS COVID, FLU AND RSV TEST. CHECK SONOGRAM AND PVR. THERE IS NO NEED FOR HIGH SPEED WARPER TENDER ON THE CASE ER CALLED WRONG PROVIDERS FOR THIS PATIENT AND A NPP SAW THE PATIENT. (2) Hypokalemia Current Visit: Yes Status: Acute Plan: REPLACE CHECK AGAIN AND FOLLOW PROTOCOL. (3) Alzheimer disease Onset Date: 10/25/18 Current Visit: No Status: Chronic Plan: CHRONIC MEDS PROGRESSIVE DISEASE. - Advance Directives Does patient have a Living Will: No Does patient have a Durable POA for Healthcare: No
[2023-05-26] MEDS: DIAZEPAM 5 MG TABLET PO SCH (21:58)
[2023-05-26] MEDS: Ringers Lactate 1,000 ML IV SCH (21:58)
[2023-05-26] MEDS ORDERED: NACHLORIDE 0.45% 1,000 ML IV SCH (22:00)
--- NOTE | 2023-05-26 22:22 | RAD REPORT ---
EXAM DESCRIPTION: RAD - Chest Single View - 05/26/2023 10:16 pm CLINICAL HISTORY: dehydration. rule out infection. Chest pain. COMPARISON: Chest Single View dated 10/24/2018; Chest Single View dated 03/09/2017 FINDINGS: Portable technique limits examination quality. The lungs are grossly clear. The heart is mildly prominent in size. No displaced fractures. IMPRESSION: No acute intrathoracic process suspected.
[2023-05-26 22:31] LABS: Potassium 2.8 mEq/L (3.5-5.1)
[2023-05-27 07:04] LABS: Absolute Lymphocytes (CBC) 1.9 K/uL (0.7-4.9); Hematocrit 43.6 % (36.0-45.0); Lymphocytes % 35.3 % (15.3-44.8); MCV 96.2 fL (80-100); MPV 7.4 fL (7.6-11.3); Platelets 186 thou/uL (152-406); RBC Red Blood Cell Count 4.54 M/uL (3.86-4.86)
[2023-05-27 07:11] LABS: ALT/SGPT 37 U/L (13-56); AST/SGOT 25 U/L (15-37); Albumin 3.4 g/dL (3.4-5.0); Alkaline Phosphatase 93 U/L (45-117); BUN Blood Urea Nitrogen 47 mg/dL (7-18); Bicarbonate 23 mEq/L (21-32); Bilirubin Total 0.4 mg/dL (0.2-1.0); Glomerular Filtration Rate 33 ml/min (=/>90); Glucose Level 83 mg/dL (74-106); Magnesium 2.2 mg/dL (1.6-2.4); Phosphorus 2.6 mg/dL (2.5-4.9); Potassium 3.1 mEq/L (3.5-5.1); Protein, Total 6.5 g/dL (6.4-8.2); Sodium Level 139 mEq/L (136-145); Uric Acid 9.2 mg/dL (2.6-6.0)
[2023-05-27 07:13] LABS: Bilirubin Direct < 0.1 mg/dL (0-0.2); Bilirubin Indirect, Calculated ND mg/dL (0.2-0.8)
[2023-05-27] MEDS: BUPROPION 150 MG PO SCH ×2 (09:00→21:00)
[2023-05-27] MEDS ORDERED: CEFTRIAXONE 1,000 MG in NA CHLORIDE 0.9% 50 ML IVPB SCH (09:00)
[2023-05-27] MEDS ORDERED: POTASSIUM CL SA 10 MEQ TAB PO ONE ×2 (09:00→12:45)
[2023-05-27] MEDS: Ringers Lactate 1,000 ML IV SCH ×2 (10:27→20:51)
--- NOTE | 2023-05-27 11:54 | RAD REPORT ---
EXAM DESCRIPTION: US - Pelvis Complete - 05/27/2023 11:43 am CLINICAL HISTORY: RETENTION OF URINE. Pelvic pain. COMPARISON: No comparisons FINDINGS: No evidence of pelvic mass or free fluid. Urinary bladder is normal size without evidence of mass or ureterocele. Prevoid bladder volume 171 mL . The bladder completely empty after voiding. IMPRESSION: No evidence of PVR.
--- NOTE | 2023-05-27 11:57 | RAD REPORT ---
EXAM DESCRIPTION: US - Abdomen Exam Complete - 05/27/2023 11:43 am CLINICAL HISTORY: Abdominal pain. PAIN IN ABDOMEN COMPARISON: Chest Single View dated 05/26/2023 FINDINGS: The liver is normal in size, shape and echotexture. No focal liver lesions or intrahepatic biliary dilatation is seen. Nonvisualized gallbladder. Common bile duct is normal in caliber measuring 7 mm. Both kidneys are normal in size, shape and echotexture. No hydronephrosis, focal lesion of concern or perinephric fluid. The spleen is normal in size measuring 9 cm. The pancreas and aorta are obscured by bowel gas. The visualized aspects of the IVC are grossly normal. IMPRESSION: No acute or worrisome abnormality detected.
[2023-05-27] MEDS: levETIRAcetam 500 MG TAB PO SCH ×2 (12:45→20:52)
[2023-05-27] MEDS: MEMANTINE HCL 10 MG TABLET PO SCH ×2 (12:45→20:52)
[2023-05-27] MEDS: DIAZEPAM 5 MG TABLET PO SCH ×2 (12:45→22:51)
[2023-05-27] MEDS: ASPIRIN EC 81 MG TAB PO SCH (12:45)
[2023-05-27] MEDS: DONEPEZIL HCL 5 MG TAB PO SCH (12:45)
[2023-05-27] MEDS: carvediloL 6.25 MG TAB PO SCH ×2 (12:46→20:52)
[2023-05-27 13:52] LABS: Urine Bacteria None Seen /HPF (<20); Urine Bilirubin NEGATIVE (Negative); Urine Blood Negative (Negative); Urine Clarity Extremely Turbid (Clear); Urine Color Light-Orange (Yellow); Urine Glucose NEGATIVE (Negative); Urine Mucus Slight /HPF (None Seen); Urine Protein TRACE (Negative); Urine RBC <5 /HPF (None Seen); Urine Urobilinogen Normal (Normal)
[2023-05-27 14:01] LABS: UR MICROALBUMIN 1.3 mg/dL (< 1.9); UR PROTEIN 34.4 mg/dL (<11.9); Urine Protein/Creatinine Ratio 0.29 ratio (<0.15)
--- NOTE | 2023-05-27 14:52 | P.PN ---
Subjective Date of Service: 05/27/23 Chief Complaint: F[facility] Subjective: Improving CONFUSED TOTALLY AT BASELINE. NO ACUTE DISTRESS FAMILY AT BEDSIDE. Review of Systems 10-point ROS is otherwise unremarkable General: Weakness Physical Examination - Vital Signs Temperature: 97.8 F Blood Pressure: 145/73 Pulse: 68 Respirations: 14 Pulse Ox (%): 100 - Physical Exam General: In no apparent distress, Cooperative, Confused HEENT: Atraumatic, PERRLA, EOMI Neck: Supple, JVD not distended Respiratory: Clear to auscultation bilaterally, Normal air movement Cardiovascular: Regular rate/rhythm, Normal S1 S2 Gastrointestinal: Normal bowel sounds, No tenderness Musculoskeletal: No tenderness Integumentary: No rashes Neurological: Normal speech, Normal tone, Normal affect Lymphatics: No axilla or inguinal lymphadenopathy - Studies Medications List Reviewed: Yes Assessment And Plan - Current Problems (Diagnosis) (1) Acute renal insufficiency Current Visit: Yes Status: Acute Plan: CLINICALLY SHE SEEMS DEHYDRATED. I ASKED ER DOCTOR ZEINA TO START ON IV FLUIDS. REASON HAS NOT BEEN EVALUATED I ORDERED [facility] AND CS COVID, FLU AND RSV TEST. CHECK SONOGRAM AND PVR. THERE IS NO NEED FOR TOOL WORKER ON THE CASE ER CALLED WRONG PROVIDERS FOR THIS PATIENT AND A NPP SAW THE PATIENT. DEHYDRATION IS BETTER CONTINUE IV FLUIDS. DC IN AM [facility] NEG. I HAD TO CALL LAB AND THEY INFORMED THAT DESPITE MY ORDER NURSES DID NOT DO COVID TEST YET SAME FOR [facility]. I HAD TO REMIND THE NURSE TO DO IT. (2) Hypokalemia Current Visit: Yes Status: Acute Plan: REPLACE CHECK AGAIN AND FOLLOW PROTOCOL. (3) Alzheimer disease Onset Date: 10/25/18 Current Visit: No Status: Chronic Plan: CHRONIC MEDS PROGRESSIVE DISEASE.
[2023-05-27 15:56] LABS: SARS-COV-2 RT PCR NEGATIVE (NEGATIVE)
--- NOTE | 2023-05-27 17:02 | EKG ---
Test Date: 2023-05-26 Test Time: 11:00:44 [employer] Maker: NELLIE MEASUREMENT RESULTS: Intervals: Rate: 55 DC: 148 QRSD: 74 QT: 466 QTc: 445 [place]: P: 58 DC: 148 QRS: 50 T: 36 INTERPRETIVE STATEMENTS: Sinus bradycardia T wave abnormality, consider anterior ischemia Abnormal ECG Electronically Signed On 05-27-23 16:59:04 CDT by Jared Jessica
[2023-05-28 06:53] LABS: Absolute Lymphocytes (CBC) 1.4 K/uL (0.7-4.9); Hematocrit 38.1 % (36.0-45.0); Lymphocytes % 30.8 % (15.3-44.8); MCV 95.3 fL (80-100); MPV 7.2 fL (7.6-11.3); Platelets 168 thou/uL (152-406)
[2023-05-28 07:12] LABS: Potassium 3.3 mEq/L (3.5-5.1)
[2023-05-28] MEDS: Ringers Lactate 1,000 ML IV SCH (07:26)
[2023-05-28] MEDS: BUPROPION 150 MG PO SCH (09:00)
[2023-05-28] MEDS: ASPIRIN EC 81 MG TAB PO SCH (09:07)
[2023-05-28] MEDS: MEMANTINE HCL 10 MG TABLET PO SCH (09:07)
[2023-05-28] MEDS: DONEPEZIL HCL 5 MG TAB PO SCH (09:07)
[2023-05-28] MEDS: DIAZEPAM 5 MG TABLET PO SCH (09:08)
[2023-05-28] MEDS: carvediloL 6.25 MG TAB PO SCH (09:08)
[2023-05-28] MEDS: levETIRAcetam 500 MG TAB PO SCH (09:08)
[2023-05-28 09:09] VITALS: BP 159/75
--- NOTE | 2023-05-28 09:41 | P.DS ---
Admission Date: 05/26/23 Discharge Date: 05/28/23 Disposition: ROUTINE DISCHARGE Discharge Condition: FAIR Reason for Admission: FOUND ON THE FLOOR AT [facility] - Problems (1) Acute renal insufficiency Current Visit: Yes Status: Acute (2) Hypokalemia Current Visit: Yes Status: Acute (3) Alzheimer disease Onset Date: 10/25/18 Current Visit: No Status: Chronic Brief History of Present Illness: HUGO HAS SEVERE ALZ DISEASE MANAGED BY DOCTORS IN [place]. SHE WAS FOUND ON THE FLOOR AND BROUGHT TO ER. SHE IS NOT ABLE TO GIVE ANY HISTORY SHE IS AT BASLINE AWAKE BUT TOTALLY DISORIENTED. SHE IS FOUNG TO HAVE K OF 2.8 AND ELEVATED BUN AND CREATININE. Hospital Course: HUGO HAS SEVERE DEMENTIA. SHE WAS FOUND ON FLOOR. SHE WAS DEHYDRATED AND IMPROVED ON IV FLUIDS. MY WORK UP TO FIND OUT WHY SHE GOT DEHYDRATED REVEALED NO INFECTIONS OR CORONARY EVENT. I FOUND THAT SHE IS ON VALIUM THAT I DID NOT START. IT MAY BE FROM [facility] FROM [facility]. I ASKED FAMILY TO MAKE SURE SHE DOES NOT GET IT. SHE IS STABLE TO GO BACK TO . L FACILITY Vital Signs/Physical Exam: Temp Pulse Resp BP Pulse Ox 97.0 F 70 16 159/75 H 98 05/28/23 04:00 05/28/23 09:08 05/28/23 04:00 05/28/23 09:08 05/28/23 04:00 Laboratory Data at Discharge: WBC 4.60 thou/uL (4.3-10.9) 05/28/23 06:19 Hgb 13.2 g/dL (12.0-15.0) D 05/28/23 06:19 Hct 38.1 % (36.0-45.0) 05/28/23 06:19 Plt Count 168 thou/uL (152-406) 05/28/23 06:19 Sodium 142 mEq/L (136-145) 05/28/23 06:19 Potassium 3.3 mEq/L (3.5-5.1) L 05/28/23 06:19 BUN 22 mg/dL (7-18) H 05/28/23 06:19 Creatinine 1.07 mg/dL (0.55-1.02) H 05/28/23 06:19 Glucose 88 mg/dL (74-106) 05/28/23 06:19 Uric Acid 9.2 mg/dL (2.6-6.0) H 05/27/23 06:14 Phosphorus 2.6 mg/dL (2.5-4.9) 05/27/23 06:14 Magnesium 2.2 mg/dL (1.6-2.4) 05/27/23 06:14 Total Bilirubin 0.4 mg/dL (0.2-1.0) 05/27/23 06:14 AST 25 U/L (15-37) 05/27/23 06:14 ALT 37 U/L (13-56) 05/27/23 06:14 Alkaline Phosphatase 93 U/L (45-117) 05/27/23 06:14 Home Medications: Aspirin [Aspirin EC 81 MG] 81 mg PO DAILY 10/24/18 Donepezil HCl 1 tab PO DAILY 10/24/18 buPROPion HCl [Zyban] 150 mg PO BID 10/24/18 carvediloL [Carvedilol] 6.25 mg PO BID 10/24/18 levETIRAcetam [Keppra*] 250 mg PO BID #60 tab 10/25/18 Memantine HCl 1 tab PO BID 05/26/23 Followup: Freddie Biggs MD [Primary Care Provider] -
[2023-05-28 10:15] VITALS: TEMP 96.9
[2023-05-28] MEDS ORDERED: POTASSIUM CL SA 10 MEQ TAB PO SCH (11:00)
== END 2023-05-28 10:30 | disposition home or self-care (01) | DRG 683 ==
LOC: ER 10:43 → ERHOLD 12:22 → 4TH 20:16
PROVIDERS: ADMIT Internal Medicine; ATTEND Internal Medicine
DX: N17.9 Acute kidney failure, unspecified (principal); F02.C3 Dementia in other diseases classified elsewhere, severe, with mood disturbance; G30.9 Alzheimer's disease, unspecified; E87.6 Hypokalemia; I10 Essential (primary) hypertension; F41.9 Anxiety disorder, unspecified; H40.9 Unspecified glaucoma; N31.9 Neuromuscular dysfunction of bladder, unspecified; E86.0 Dehydration; G40.909 Epilepsy, unspecified, not intractable, without status epilepticus; I25.10 Atherosclerotic heart disease of native coronary artery without angina pectoris; W19.XXXA Unspecified fall, initial encounter; Y93.9 Activity, unspecified; Y92.129 Unspecified place in nursing home as the place of occurrence of the external cause; Y99.9 Unspecified external cause status; Z88.1 Allergy status to other antibiotic agents; Z79.82 Long term (current) use of aspirin; Z79.02 Long term (current) use of antithrombotics/antiplatelets; Z90.49 Acquired absence of other specified parts of digestive tract; Z79.899 Other long term (current) drug therapy; Z90.710 Acquired absence of both cervix and uterus; Z20.822 Contact with and (suspected) exposure to COVID-19
CPT/HCPCS: 0241U; 36415; 70450; 71045; 72125; 76700; 76856; 80048; 80076; 81001; 82043; 82570; 83735; 84100; 84156; 84484; 84550; 85025; 93005; 97116; 97161; 97530; 99284; J0696; J7120